=== PATIENT | female | born 1990 | race Hispanic/Latino ===

== ENCOUNTER 2019-03-29 07:08 | Emergency (ER) | payer OTHER, SELFPAY ==
--- OUTSIDE RECORDS SUMMARY | 2019-03-29 07:10 | XMS REPORT | Summary of Care ---
:1990 Author Organization [facility] Address [address] [place] [id number] Care Team Providers Name Role Phone Pcp, Patient Does Not Have A Unavailable Serena Castanon MD Primary Care Provider Reason for Visit Reason Comments New Medication Encounter Details Date Type Department Care Team Description 09/25/2018 Case Management [facility] Women's Danae Freedman, New Medication [facility]- [address], [address] [place] [address] [address] [place] [address] [place] [address] [place] [phone] Allergies No Known Allergiesdocumented as of this encounter (statuses as of 09/25/2018) Medications Medication Sig Dispensed Refills Start Date End Date Status Take by mouth. 0 Active vits62/FA/om3/dha/epa ( GUMMY ORAL) ibuprofen 600 mg Take 1 tablet by 30 tablet 1 08/26/2018 Active tabletIndications: mouth every 6 care and (six) hours as examination immediately needed for after delivery Alternate with [place] for pain scale 4-6. metroNIDAZOLE 500 mg Take 1 tablet by 14 tablet 0 09/25/2018 Active tabletIndications: BV mouth every 12 (bacterial vaginosis), (twelve) hours. Trichomonal vulvovaginitis documented as of this encounter (statuses as of 09/25/2018) Active Problems Patient Care Coordination Note IOL on 02/13/2017 @ 7a.m. Problem Noted Date care and examination immediately after delivery 08/26/2018 PROM (premature rupture of membranes) 08/25/2018 with 38 completed weeks gestation 08/25/2018 Encounter for female sterilization procedure 08/25/2018 Depression during , antepartum 06/13/2018 Excessive weight gain 06/13/2018 Previous section 06/13/2018 Elevated BP without diagnosis of hypertension 06/13/2018 Obesity (BMI 30-39.9) 01/23/2017 Chlamydia 06/29/2016 Depression, unspecified depression type 06/28/2016 documented as of this encounter (statuses as of 09/25/2018) Resolved Problems Problem Noted Date Resolved Date Tubal ligation status 06/13/2018 08/26/2018 care and examination of lactating mother 02/14/2017 08/26/2018 Full-term premature rupture of membranes with onset of labor 01/23/201702/14 within 24 hours of rupture 37 weeks gestation of 01/23/2017 02/14/2017 Liveborn , of [place] , born in hospital by 01/23/201702/14 delivery Labor abnormality, delivered 01/23/2017 02/14/2017 Supervision of high risk , antepartum, third 12/03/2016 02/14/2017 trimester Candidiasis of vulva and vagina 11/16/2016 02/14/2017 Need for Tdap vaccination 11/16/2016 02/14/2017 Supervision of high risk , antepartum, second 11/02/2016 12/03/2016 trimester Nausea & vomiting 08/01/2016 09/07/2016 Abnormal quad screen 07/30/2016 02/14/2017 Supervision of high risk , antepartum, first 06/28/2016 11/02/2016 trimester Missed menses 06/28/2016 02/14/2017 Nausea and vomiting during prior to 22 weeks 06/28/2016 02/14/2017 gestation Obesity in 06/28/2016 02/14/2017 documented as of this encounter (statuses as of 09/25/2018) Immunizations Name Administration Dates Next Due Influenza Virus Vaccine Quad .5 mL IM 6+ MO 06/13/2018 06/14/2019 TDAP (ADACEL) VACCINE 07/14/2018 Tdap 11/16/2016 documented as of this encounter Social History Tobacco Use Types Packs/Day Years Used Date Former Smoker Cigarettes Quit: 05/13/2018 Smokeless Tobacco: Never Used Alcohol Use Drinks/Week oz/Week Comments No Sex Assigned at Date Recorded Not on file Job Start Date Occupation Industry Not on file Not on file Not on file Travel History Travel Start Travel End No recent travel history available. documented as of this encounter Last Filed Vital Signs Not on filedocumented in this encounter Plan of Treatment Date Type Specialty Care Team Description 10/19/2018 Office Visit Obstetrics & Gynecology Serena Castanon MD [address] [place] [address] [address] [place] [address] [phone] 11/20/2019 Office Visit Obstetrics & Gynecology Serena Castanon MD [address] [place] [address] [address] [place] [address] [phone] Health Maintenance Due Date Last Done Comments INFLUENZA VACCINE 10/29/2018 06/13/2018 PAP SMEAR 06/29/2019 06/28/2016 DTaP,Tdap,and Td Vaccines (3 07/14/2028 07/14/2018, - Td) 11/16/2016 PNEUMOCOCCAL 0-64 YEARS Aged Out No longer eligible based COMBINED SERIES on patient's age to complete this topic documented as of this encounter Results Not on filedocumented in this encounter Visit Diagnoses Diagnosis Trichomonal vulvovaginitis - Primary BV (bacterial vaginosis) Vaginitis and vulvovaginitis, unspecified documented in this encounter Insurance Payer Benefit Plan / Subscriber ID Effective Dates Phone Address Type Group [facility] xxxxxxxxx 2018-Present Medicaid COMM PLAN - MANAGED MEDICAID documented as of this encounter
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
--- OUTSIDE RECORDS SUMMARY | 2019-03-29 07:10 | XMS REPORT ---
:1990 [facility] Address [address] [place] [address] [address] [place] [address] Care Team Providers Name Role Phone Unavailable Unavailable Unavailable Problems This patient has no known problems. Allergies, Adverse Reactions, Alerts This patient has no known allergies or adverse reactions. Medications This patient has no known medications.
[2019-03-29] MEDS ORDERED: ONDANSETRON 4 MG/2 ML VIAL ONE (07:24)
[2019-03-29] MEDS ORDERED: LIDOCAINE VISCOUS 2% SOLN 15 ML UDC ONE (07:24)
[2019-03-29] MEDS ORDERED: MEPERIDINE HCL 25 MG/0.5 ML ONE (07:24)
[2019-03-29] MEDS ORDERED: MAGNE/ALUM HYDROXD 30 ML UCUP ONE (07:24)
[2019-03-29 07:26] LABS: Absolute Lymphocytes (CBC) 2.9 K/uL (0.7-4.9); Basophils % 0.8 % (0-1.3); Hematocrit 42.4 % (36.0-45.0); Lymphocytes % 27.9 % (15.3-44.8); MPV 8.9 fL (7.6-11.3); RBC Red Blood Cell Count 4.95 M/uL (3.86-4.86)
[2019-03-29 07:46] LABS: ALT/SGPT 29 U/L (12-78); AST/SGOT 22 U/L (15-37); Albumin 3.7 g/dL (3.4-5.0); Alkaline Phosphatase 95 U/L (45-117); BUN Blood Urea Nitrogen 12 mg/dL (7-18); Bicarbonate 21 mmol/L (21-32); Bilirubin Direct 0.1 mg/dL (0-0.2); Bilirubin Total 0.6 mg/dL (0.2-1.0); Glucose Level 100 mg/dL (74-106); Lipase 63 U/L (73-393); Potassium 4.1 mmol/L (3.5-5.1); Protein, Total 7.5 g/dL (6.4-8.2); Sodium Level 140 mmol/L (136-145)
--- NOTE | 2019-03-29 08:42 | RAD REPORT ---
EXAM DESCRIPTION: CT - Abdomen Pelvis W Contrast - 03/29/2019 8:21 am CLINICAL HISTORY: Abdominal pain/vomiting COMPARISON: none. TECHNIQUE: Computed axial tomography of the abdomen pelvis was obtained. 100 cc Isovue-300 was admin istered intravenously. Oral contrast was not requested which limits evaluation of bowel. All CT scans are performed using dose optimization technique as appropriate and may include automated exposure control or mA/KV adjustment according to patient size. FINDINGS: The liver, spleen, pancreas, adrenal and left kidney appear unremarkable. Tiny right renal cyst. Right renal cortical thinning. There is no evidence of diverticulitis. Normal appendix. No significant free fluid Cholecystectomy. Tiny umbilical hernia IMPRESSION: Mild right renal cortical thinning may be secondary to prior inflammation No acute abnormality is displayed.
--- NOTE | 2019-03-29 09:00 | ER ---
Nurse's Notes [facility] Name: Erika Marr Age: 28 yrs Sex: Female : 1990 Arrival Date: 03/29/2019 Time: 07:09 Bed 20 Private MD: Diagnosis: Gastritis, unspecified Presentation: 03/29 07:09 Presenting complaint: Patient states: Intermittent epigastric pain with nausea/ ss vomiting that began at 0300 this morning. Pt reports she had had this pain before, but not this bad. Transition of care: patient was not received from another setting of care. Onset of symptoms was March 29, 2019. Risk Assessment: Do you want to hurt yourself or someone else? Patient reports no desire to harm self or others. Initial Sepsis Screen: Does the patient meet any 2 criteria? No. Patient's initial sepsis screen is negative. Does the patient have a suspected source of infection? No. Patient's initial sepsis screen is negative. Care prior to arrival: None. 07:09 Method Of Arrival: Ambulatory ss 07:09 Acuity: VANITA 3 ss Historical: - Allergies: 07:12 No Known Allergies; ss - Home Meds: 07:12 None [Active]; ss - PMHx: 07:12 None; ss - PSHx: 07:12 Cholecystectomy; mass removed from back; Tubal ligation; ss - Immunization history:: Adult Immunizations up to date. - Coronavirus screen:: The patient has NOT traveled to [place], [place], or [place] in the past 14 days. Proceed with normal triage process as indicated. - Social history:: Smoking status: Patient denies any tobacco usage or history of. - Family history:: not pertinent. - Ebola Screening: : Patient denies exposure to infectious person Patient denies travel to an Ebola-affected area in the 21 days before illness onset. - Hospitalizations: : No recent hospitalization is reported. Screenin:13 Abuse screen: Denies threats or abuse. Denies injuries from another. Nutritional ss screening: No deficits noted. Tuberculosis screening: Never had TB. Fall Risk None identified. Assessment: 07:13 General: Appears distressed, uncomfortable, Behavior is cooperative, restless, Reports ss feeling ill for 0-12 hours, Denies fever, fatigue, chills. Pain: Complains of pain in epigastric area Pain currently is 8 out of 10 on a pain scale. Quality of pain is described as burning, Pain began 0300 this morning. Pt reports she ate foods that may have been more spicy than she normally eats. Is intermittent. Neuro: Level of Consciousness is awake, alert, obeys commands, Oriented to person, place, time, situation. Cardiovascular: Capillary refill < 3 seconds is brisk in bilateral fingers. Respiratory: Airway is patent Respiratory effort is even, unlabored, Respiratory pattern is regular, symmetrical. GI: Reports epigastric pain, nausea, vomiting, Patient currently denies diarrhea. : No signs and/or symptoms were reported regarding the genitourinary system. EENT: Nares are clear. Derm: Skin is intact, is healthy with good turgor, Skin is pink, warm \T\ dry. normal. Musculoskeletal: Circulation, motion, and sensation intact. Range of motion: intact in all extremities, Swelling absent. 08:24 Reassessment: Patient appears in no apparent distress at this time. Patient and/or ss family updated on plan of care and expected duration. Pain level reassessed. Patient is alert, oriented x 3, equal unlabored respirations, skin warm/dry/pink. pain is now 4/10 Patient states feeling better. Patient states symptoms have improved. 09:10 Reassessment: Patient appears in no apparent distress at this time. No changes from rb1 previously documented assessment. Vital Signs: 07:12 BP 121 / 82; Pulse 70; Resp 19; Temp 97.9(TE); Pulse Ox 100% on R/A; Weight 90.72 kg; Height 5 ft. 2 in. (157.48 cm); Pain 8/10; 08:12 BP 109 / 80; Pulse 62; Resp 17; Pulse Ox 95% on R/A; rb1 08:24 Pain 4/10; ss 09:16 BP 112 / 74; Pulse 70; Resp 16; Pulse Ox 97% on R/A; Pain 4/10; rb1 07:12 Body Mass Index 36.58 (90.72 kg, 157.48 cm) ED Course: 07:09 Patient arrived in ED. ss 07:09 Osorio Nunes MD is Attending Physician. rn 07:11 Triage completed. ss 07:12 Arm band placed on right wrist. ss 07:13 Patient has correct armband on for positive identification. Bed in low position. Call ss light in reach. 07:27 Sandhya Jeronimo, RN is Primary Nurse. 07:28 Initial lab(s) drawn, by me, sent to lab. Inserted saline lock: 20 gauge in right em1 antecubital area, using aseptic technique. Blood collected. 08:21 CT Abd/Pelvis - IV Contrast Only In Process Unspecified. EDMS 09:17 No provider procedures requiring assistance completed. IV discontinued, intact, rb1 bleeding controlled, No redness/swelling at site. Pressure dressing applied. Administered Medications: 07:25 Drug: GI Cocktail without - (Maalox Suspension 30 ml, Lidocaine Liquid 2 % 15 ss ml) Route: PO; 08:00 Follow up: Response: No adverse reaction; Marked relief of symptoms 07:25 Drug: Zofran 4 mg Route: IVP; Site: right antecubital; ss 07:45 Follow up: Response: No adverse reaction; Nausea is decreased ss 07:28 Drug: Demerol 25 mg Route: IVP; Site: right antecubital; ss 08:00 Follow up: Response: No adverse reaction; Pain is decreased Outcome: 09:00 Discharge ordered by . rn 09:17 Discharged to home ambulatory. rb1 09:17 Condition: stable 09:17 Discharge instructions given to patient, Instructed on discharge instructions, follow up and referral plans. medication usage, Demonstrated understanding of instructions, follow-up care, medications, Prescriptions given X 1. 09:19 Patient left the ED. rb1 Signatures: Dispatcher [employer] EDNJ Osorio Nunes MD MD rn Martinez, Anjel em1 Sandhya Jeronimo RN RN Morenita Shirley RN RN rb1
--- NOTE | 2019-03-29 09:00 | EDPHYS ---
Physician Documentation [facility] Name: Erika Marr Age: 28 yrs Sex: Female : 1990 Arrival Date: 03/29/2019 Time: 07:09 Bed 20 Private MD: ED Physician Osorio Nunes HPI: 03/29 07:17 This 28 yrs old Female presents to ER via Ambulatory with complaints of rn Epigastric Pain. 07:17 The patient presents with abdominal pain in the epigastric area. Onset: The rn symptoms/episode began/occurred this morning. The symptoms do not radiate. Associated signs and symptoms: Pertinent positives: nausea and vomiting, Pertinent negatives: blood in stools, chest pain, diarrhea, fever, shortness of breath, vaginal discharge, vomiting blood. The symptoms are described as crampy, sharp. Modifying factors: The symptoms are alleviated by nothing, the symptoms are aggravated by touching the area. Severity of pain: At its worst the pain was moderate in the emergency department the pain is unchanged. The patient has experienced similar episodes in the past. The patient has not recently seen a physician. Reports upper abd pain, began this morning, felt similar episodes in past, has had gallbladder removed, + nausea/vomiting, neg for diarrhea. . Historical: - Allergies: 07:12 No Known Allergies; ss - Home Meds: 07:12 None [Active]; ss - PMHx: 07:12 None; ss - PSHx: 07:12 Cholecystectomy; mass removed from back; Tubal ligation; ss - Immunization history:: Adult Immunizations up to date. - Coronavirus screen:: The patient has NOT traveled to [place], [place], or [place] in the past 14 days. Proceed with normal triage process as indicated. - Social history:: Smoking status: Patient denies any tobacco usage or history of. - Family history:: not pertinent. - Ebola Screening: : Patient denies exposure to infectious person Patient denies travel to an Ebola-affected area in the 21 days before illness onset. - Hospitalizations: : No recent hospitalization is reported. ROS: 07:17 Constitutional: Negative for fever, chills, and weight loss, Eyes: Negative for injury, rn pain, redness, and discharge, Neck: Negative for injury, pain, and swelling, Cardiovascular: Negative for chest pain, palpitations, and edema, Respiratory: Negative for shortness of breath, cough, wheezing, and pleuritic chest pain, Abdomen/GI: + epigastric abd pain, + vomiting MS/Extremity: Negative for injury and deformity, Skin: Negative for injury, rash, and discoloration, Neuro: Negative for headache, weakness, numbness, tingling, and seizure. Exam: 07:17 Constitutional: This is a well developed, well nourished patient who is awake, alert, rn rocking back and forth, holding epigastrium Head/Face: Normocephalic, atraumatic. ENT: MMM Cardiovascular: Regular rate and rhythm. No pulse deficits. Abdomen/GI: soft, mild epigastric tenderness, no rebound Skin: Warm, dry with normal turgor. Normal color with no rashes, no lesions, and no evidence of cellulitis. MS/ Extremity: Pulses equal, no cyanosis. Neurovascular intact. Full, normal range of motion. Equal circumference. Neuro: Awake and alert, GCS 15, oriented to person, place, time, and situation. Cranial nerves II-XII grossly intact. Motor strength 5/5 in all extremities. Sensory grossly intact. Vital Signs: 07:12 BP 121 / 82; Pulse 70; Resp 19; Temp 97.9(TE); Pulse Ox 100% on R/A; Weight 90.72 kg; ss Height 5 ft. 2 in. (157.48 cm); Pain 8/10; 08:12 BP 109 / 80; Pulse 62; Resp 17; Pulse Ox 95% on R/A; rb1 08:24 Pain 4/10; ss 09:16 BP 112 / 74; Pulse 70; Resp 16; Pulse Ox 97% on R/A; Pain 4/10; rb1 07:12 Body Mass Index 36.58 (90.72 kg, 157.48 cm) ss MDM: 07:09 Patient medically screened. rn 08:58 Differential diagnosis: gastritis, gastroesophageal reflux disease, non-specific abd rn pain, pancreatitis, gastritis. Data reviewed: vital signs, nurses notes, lab test result(s), radiologic studies, CT scan, and as a result, I will discharge patient. Counseling: I had a detailed discussion with the patient and/or guardian regarding: the historical points, exam findings, and any diagnostic results supporting the discharge/admit diagnosis, lab results, radiology results, the need for outpatient follow up, to return to the emergency department if symptoms worsen or persist or if there are any questions or concerns that arise at home. Response to treatment: the patient's symptoms have markedly improved after treatment, and as a result, I will discharge patient. Special discussion: Based on the patient's Hx, exam, and Dx evaluation, there is no indication for emergent surgery or inpatient Tx. It is understood by the patient/guardian that if the Sx's persist or worsen they need to return immediately for re-evaluation. I discussed with the patient/guardian in detail that at this point there is no indication for admission to the hospital. It is understood, however, that if the symptoms persist or worsen the patient needs to return immediately for re-evaluation. Based on the history and exam findings, there is no indication for further emergent testing or inpatient evaluation. I discussed with the patient/guardian the need to see the arboriculturist for further evaluation of the symptoms. 03/29 07:14 Order name: Basic Metabolic Panel; Complete Time: 07:50 rn 03/29 07:14 Order name: CBC with Diff; Complete Time: 07:50 rn 03/29 07:14 Order name: Creatinine for Radiology; Complete Time: 07:50 rn 03/29 07:14 Order name: Hepatic Function; Complete Time: 07:50 rn 03/29 07:14 Order name: Lipase; Complete Time: 07:50 rn 03/29 07:14 Order name: CT Abd/Pelvis - IV Contrast Only; Complete Time: 08:46 rn 03/29 07:14 Order name: IV Saline Lock; Complete Time: 07:28 rn 03/29 07:14 Order name: Labs collected and sent; Complete Time: 07:28 rn Administered Medications: 07:25 Drug: GI Cocktail without - (Maalox Suspension 30 ml, Lidocaine Liquid 2 % 15 ss ml) Route: PO; 08:00 Follow up: Response: No adverse reaction; Marked relief of symptoms ss 07:25 Drug: Zofran 4 mg Route: IVP; Site: right antecubital; ss 07:45 Follow up: Response: No adverse reaction; Nausea is decreased ss 07:28 Drug: Demerol 25 mg Route: IVP; Site: right antecubital; ss 08:00 Follow up: Response: No adverse reaction; Pain is decreased ss Disposition: 03/29/19 09:00 Discharged to Home. Impression: Gastritis, unspecified. - Condition is Stable. - Discharge Instructions: Gastritis, Adult. - Prescriptions for Protonix 40 mg Oral Tablet - take 1 tablet by ORAL route once daily; 30 tablet. - Medication Reconciliation Form, Thank You Letter, Antibiotic Education, Prescription Opioid Use, Work release form form. - Follow up: Private Physician; When: As needed; Reason: Recheck today's complaints, Re-evaluation by your physician. - Problem is new. - Symptoms have improved. Signatures: Dispatcher [employer] EDMS Osorio Nunes MD MD rn Sandhya Jeronimo RN RN ss Morenita Shirley RN RN rb1 Corrections: (The following items were deleted from the chart) 09:00 03/29/2019 09:00 Discharged to Home. Impression: Gastritis, unspecified. rb1 Condition is Stable. Forms are Medication Reconciliation Form, Thank You Letter, Antibiotic Education, Prescription Opioid Use. Follow up: Private Physician; When: As needed; Reason: Recheck today's complaints, Re-evaluation by your physician. Problem is new. Symptoms have improved. rn
[2019-03-29 15:22] VITALS: TEMP 97.9
[2019-03-29 15:26] VITALS: BP 112/74; O2SAT 97
== END 2019-03-29 09:19 | disposition home or self-care (01) ==
LOC: ER 07:08
DX: K29.70 Gastritis, unspecified, without bleeding (principal)
CPT/HCPCS: 36415; 74177; 80048; 80076; 83690; 85025; 96374; 96375; 99284; J2175; J2405; Q9967

== ENCOUNTER 2021-05-17 11:39 | Emergency (ER) | payer SELFPAY ==
--- OUTSIDE RECORDS SUMMARY | 2021-05-17 11:42 | XMS REPORT | Continuity of Care Document ---
:1990 Author Organization [facility] t Address [address] [place] [address] Care Team Providers Name Role Phone SAMANTHA CHRISTIANSON Primary Care Physician Unavailable FREDY Attending Clinician Unavailable Fredy KUO Attending Clinician Geovanny BELL Attending Clinician Unavailable SAMANTHA CHRISTIANSON Attending Clinician Unavailable Tano POLANCO Attending Clinician Samantha Christianson MD Attending Clinician FREDY Admitting Clinician Unavailable Payers Payer Name Policy Type Policy Number Effective Date Expiration Date S ource Problems Condition Condition Condition Status Onset Resolution Last Treating Co mments Source Name Details Category Date Date Treatment Clinician Date Disease Active U nivers care and care and 6 [place] exam[place] Medical immediatel immediatel Br anch y after y after delivery delivery PROM PROM Disease Active Univers (premature (premature 6-28 it y of rupture of rupture of [place] membranes) membranes) 00 Wi dical Branch Disease Active Uni vers with 38 with 38 6-28 [place] 00 Medical gestation gestation Bran ch Encounter Encounter Disease Active Uni vers for female for female 6-28 it y of sterilizat sterilizat [place] 00 Medical procedure procedure Bran ch Encounter Encounter Disease Active Uni vers for female for female 6-28 it y of sterilizat sterilizat [place] 00 Medical procedure procedure Bran ch Depression Depression Disease Active U nivers during during 4-16 [place] of , , [place] antepartum antepartum 00 Wi dical Branch Excessive Excessive Disease Active Uni vers weight weight 4-16 ity of gain gain 00:00: [place] [id number] Medical Branch Previous Previous Disease Active Unive rs 4-16 ity of section section 00:00: [address] Elevated Elevated Disease Active Unive rs BP without BP without 4-16 it y of diagnosis diagnosis [place] hypertensi hypertensi Br anch on on Obesity Obesity Disease Active 2016-02 Univers (BMI (BMI 1-26 ity of 30-39.9) 30-39.9) 00:00: [address] Branch Chlamydia Chlamydia Disease Active Uni vers - ity of 00:00: [address] Depression Depression Disease Active U nivers , , 06-28 ity of unspecifie unspecifie [place] d d 00 Medical depression depression Br anch type type Allergies, Adverse Reactions, Alerts Allergy Allergy Status Severity Reaction(s) Onset Inactive Treating Comm ents Source Name Type Date Date Clinician NO KNOWN Drug Active Univers ALLERGIE Class ity of S [facility] Social History Social Habit Start Date Stop Date Quantity Comments Source Exposure to Not sure [facility] SARS-CoV-2 [facility] (event) Branch Alcohol intake 2018-09-21 2018-09-21 Current University of 00:00:00 00:00:00 non-drinker of [facility] alcohol (finding) Branch History of 2018-05-13 Cigarette Smoker Universi ty of tobacco use 00:00:00 [facility] Tobacco use and 2016-06-28 2016-06-28 Never used Universit y of exposure 00:00:00 00:00:00 [facility] Sex Assigned At [birth year] Universit y of 00:00:00 00:00:00 [facility] Smoking Status Start Date Stop Date Source Former smoker 2016-06-28 00:00:00 2016-06-28 00:00:00 Universi ty of [facility] Medications Ordered Filled Start Stop Current Ordering Indication Dosage Frequency Signature Comments Components Source Medication Medication Date Date Medication? Clinician (SIG) Name Name metroNIDAZO Yes [id number] 500mg Take 1 Univers LE 500 mg 7-29 tablet by ity o f tablet 00:00: mouth [place] 00 every 12 Medical (twelve) Branch hours. metroNIDAZO Yes [id number] 500mg Take 1 Univers LE 500 mg 7-29 tablet by ity o f tablet 00:00: mouth [place] 00 every 12 Medical (twelve) Branch hours. Yes Take by Unive rs vits62/FA/o 6-30 mouth. ity of m3/dha/epa 19:09: [place] ( 44 Medical GUMMY ORAL) Branch Yes Take by Unive rs vits62/FA/o 6-30 mouth. ity of m3/dha/epa 19:09: [place] ( 44 Medical GUMMY ORAL) Branch Yes Take by Unive rs vits62/FA/o 6-30 mouth. ity of m3/dha/epa 14:09: [place] ( 44 Medical GUMMY ORAL) Branch ibuprofen Yes [id number] 600mg Take 1 U nivers 600 mg 6-29 tablet by ity of tablet 00:00: mouth [place] 00 every 6 Medical (six) Branch hours as needed for Alternate with [place] for pain scale 4-6. ibuprofen Yes [id number] 600mg Take 1 U nivers 600 mg 6-29 tablet by ity of tablet 00:00: mouth [place] 00 every 6 Medical (six) Branch hours as needed for Alternate with [place] for pain scale 4-6. ibuprofen Yes [id number] 600mg Take 1 U nivers 600 mg 6-29 tablet by ity of tablet 00:00: mouth [place] 00 every 6 Medical (six) Branch hours as needed for Alternate with [place] for pain scale 4-6. simethicone 2019- No [id number] 160mg Take 2 Univers 80 mg 6-29 07-25 tablets by ity of chewable 00:00: 00:00 mouth [place] tablet 00 :00 after Medical meals and Branch at bedtime. HYDROcodone 2019- No [id number] 1{tbl} Take 1 Univers -acetaminop 6-29 07-25 tablet by it y of hen 5-325 00:00: 00:00 mouth [place] mg tablet 00 :00 every 6 Medical (six) Branch hours as needed (pain). Immunizations Ordered Filled Immunization Date Status Comments [facility] e Immunization Name Name SARS-COV-2 COVID-19 2020-05-14 Completed Unive rsity of PFIZER VACCINE 00:00:00 [facility] TDAP (ADACEL) 2018-07-14 Completed University of VACCINE 00:00:00 [facility] TDAP (ADACEL) 2018-07-14 Completed University of VACCINE 00:00:00 [facility] TDAP (ADACEL) 2018-07-14 Completed University of VACCINE 00:00:00 [facility] Influenza Virus 2018-06-13 Completed Universit y of Vaccine Quad .5 mL 00:00:00 [facility] IM 6+ MO Branch Influenza Virus 2018-06-13 Completed Universit y of Vaccine Quad .5 mL 00:00:00 [facility] IM 6+ MO Branch Influenza Virus 2018-06-13 Completed Universit y of Vaccine Quad .5 mL 00:00:00 [facility] 6+ MO Branch Tdap 2016-11-16 Completed University of 00:00:00 [facility] Tdap 2016-11-16 Completed University of 00:00:00 [facility] TDAP 2016-11-16 Completed University of 00:00:00 [facility] Vital Signs Vital Name Observation Time Observation Value Comments Source Systolic blood 2021-04-15 09:00:00 119 mm[Hg] Univer sity of pressure [facility] Diastolic blood 2021-04-15 09:00:00 92 mm[Hg] Unive rsity of pressure [facility] Heart rate 2021-04-15 09:00:00 87 /min [facility] Respiratory rate 2021-04-15 09:00:00 24 /min [facility] Oxygen saturation in 2021-04-15 09:00:00 95 /min [facility] Arterial blood by [facility] Pulse oximetry Branch Body temperature 2021-04-15 06:08:00 37.83 [facility] Body weight 2021-04-15 06:08:00 83.915 kg [facility] BMI 2021-04-15 06:08:00 33.84 kg/m2 [facility] Systolic blood 2018-09-21 21:29:00 116 mm[Hg] Univer sity of pressure [facility] Diastolic blood 2018-09-21 21:29:00 78 mm[Hg] [facility] Heart rate 2018-09-21 21:29:00 72 /min [facility] Body temperature 2018-09-21 21:29:00 36.72 [facility] Respiratory rate 2018-09-21 21:29:00 18 /min [facility] Body height 2018-09-21 21:29:00 157.5 cm [facility] Body weight 2018-09-21 21:29:00 85.276 kg [facility] BMI 2018-09-21 21:29:00 34.39 kg/m2 [facility] Procedures Procedure Date / Time Performing Clinician Source Performed POCT TEST 2021-04-15 07:04:00 José Manuel Daniel [facility] COVID-19 (ID NOW RAPID 2021-04-15 07:02:[address] [facility] TESTING) [facility] URINE DRUG (IMMUNOASSAY) 2021-04-15 07:01:00 José Manuel Daniel [facility] DRUG [facility] nch SCREEN W/O REFLEX URINALYSIS 2021-04-15 07:01:00 José Manuel Daniel [facility] XR CHEST 1 VW 2021-04-15 06:40:00 José Manuel Daniel [facility] N-TERMINAL PRO-BNP 2021-04-15 06:32:00 José Manuel Daniel [facility] TROPONIN I 2021-04-15 06:32:00 José Manuel Daniel [facility] COMP. METABOLIC PANEL 2021-04-15 06:32:00 José Manuel Daniel [facility] ([id number]) [facility] ETHANOL 2021-04-15 06:32:00 José Manuel Daniel [facility] CBC WITH DIFF 2021-04-15 06:32:00 José Manuel Daniel [facility] NOTICE OF PRIVACY 2021-04-15 06:03:45 Doctor Unassigned, No Univ [facility] PRACTICES Name Medical Branch CONSENT/REFUSAL FOR 2021-04-15 06:01:26 Doctor Unassigned, No Un [facility] DIAGNOSIS AND TREATMENT Name Medical Branch Encounters Start End Encounter Admission Attending Care Care Encounter Source Date/Time Date/Time Type Type Clinicians Facility Department ID 2021-04-15 2021-04-15 Emergency X FREDY [facility] ERT [id number] Univers 00:02:00 03:32:00 JOSÉ MANUEL [facility] 2021-04-15 2021-04-15 [id number] Univers 00:02:00 03:32:00 José Manuel JUAN JOSÉ [id number] i ty of [id number] [id number] [address] 2020-06-06 2020-06-06 Outpatient Naeem [facility] [id number] Univers 16:20:00 16:20:00 TESFAYE [facility] 2020-05-14 2020-05-14 Outpatient Naeem [facility] [id number] Univers 16:20:00 17:07:43 TESFAYE [facility] 2019-11-20 2019-11-20 Outpatient R DANELLE CHRISTIANSON [facility] [id number] Univers [facility]:00[facility]00 [facility] 2018-09-25 [facility] [id number] Univers 00:00:00 00:00:00 Management Danae Velasquez [id number] [id number] [phone] Wi [address] 2018-09-21 2018-09-21 Routine Danelle Christianson [facility] [id number] Univers 16:18:25 16:44:59 Samantha Velasquez [id number] ity of [id number] [phone] Wi dictn nal [address] [facility] Results Test Description Test Time Test Comments Results Result Comments Source TROPONIN I 2021-04-15 07:09:33 Test Item Value Reference Range Interpretation Comme nts TROPONIN I (test code = 0.007 ng/mL See_Comment [Au tomated message] The [id number]) system which ge nerated this result tra nsmitted reference range : <=0.034. The reference r simone was not used to int erpret this result as normal/abnormal . LESA (test code = LESA) Reference (Normal) Range (defined by the 99th percentile reference limit): <= 0.034 ng/mL Note: Cardiac troponin begins to rise 3-4 hours after the onset of ischemia. Repeat in 4-6 hours if the sample was drawn within 3-4 hours of the onset of the symptom and found normal. Diagnosis of myocardial injury is made with acute changes in cTn concentrations with at least one serial sample above the 99th percentile upper reference limit (URL), taken together with the patient's clinical presentation. Biotin has been reported to cause a negative bias, interpret results relative to patient's use of biotin. Lab Interpretation Normal (test code = 13582-4) [id number] 07:05:51 Test Item Value Reference Range Interpretation Comments NT-proBNP (test code 42 pg/mL See_Comment [Autom ated = 1445201944) message] The system which generated this result transmitted reference range : <=125. The reference range was not used to interpret this result as normal/abnormal . LESA (test code = LESA) Biotin has been reported to cause a negative bias, interpret results relative to patient's use of biotin. Lab Interpretation Normal (test code = 78359-7) [facility] [id number] 07:04:00 Test Item Value Reference Range Interpretation Comments POCT PREG (test code = 1605) negative On board controls acceptable with present C Line (test code = 3574) POCT PREG LOT # (test code = 3575) [id number] POCT PREG TEST DATE (test code = 3576) Lab Interpretation (test code = Normal 62055-3) [facility] 06:59:03 Test Item Value Reference Range Interpretation Comments ALCOHOL (test code = <10 mg/dL 2108801039) ELSA (test code = LESA) <10 [id number] Toxic>100 Depression of 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. METABOLIC PANEL (25086)2021-04-15 06:52:09 Test Item Value Reference Range Interpretation Comments NA (test code = 134 mmol/L 135-145 L [id number]) K (test code = 4.5 mmol/L 3.5-5.0 1459240665) CL (test code = 108 mmol/L 98-108 7981188086) CO2 TOTAL (test code = 18 mmol/L 23-31 L 9950078123) AGAP (test code = 2-16 6434938813) BUN (test code = 8 mg/dL 7-23 8648895960) GLUCOSE (test code = 91 mg/dL 70-110 6893624233) CREATININE (test code = 0.62 mg/dL 0.50-1.04 5064056777) TOTAL BILI (test code = 1.1 mg/dL 0.1-1.1 1550099832) CALCIUM (test code = 9.1 mg/dL 8.6-10.6 7460854905) T PROTEIN (test code = 7.8 g/dL 6.3-8.2 7758814381) ALBUMIN (test code = 4.6 g/dL 3.5-5.0 7684489773) ALK PHOS (test code = 63 U/L 34-122 1482880896) ALTv (test code = 18 U/L 5-35 1742-6) AST(SGOT) (test code = 35 U/L 13-40 3606428601) eGFR (test code = mL/min/1.73m2 3925203092) LESA (test code = LESA) Association of Glomerular Filtration Rate (GFR) and Staging of Kidney Disease* + --+ --+ ------+| GFR (mL/min/1.73 m2) ?| With Kidney Damage ?| ?Without Kidney Damage+ --------+ --------+ +| ?>90 ?| ?Stage one ?| ? Normal ?+ ---+ ---+ -------+| ?60-89 ?| ?Stage two ?| ? Decreased GFR ? + --+ --+ ------+| ?30-59 ?| ?Stage three ?| ? Stage three ? + --+ --+ ------+| ?15-29 ?| ?Stage four ? | ? Stage four ?+ ---+ ---+ -------+| ?<15 (or dialysis) ? ?| ?Stage five ? | ? Stage five ?+ ---+ ---+ -------+ *Each stage assumes the associated GFR level has been in effect for at least three months. ?Stages 1 to 5, with or without kidney disease, indicate chronic kidney disease. Notes: Determination of stages one and two (with eGFR >59mL/min/1.73 m2) requires estimation of kidney damage for at least three months as defined by structural or functional abnormalities of the kidney, manifested by either:Pathological abnormalities or Markers of kidney damage (including abnormalities in the composition of the blood or urine or abnormalities in imaging tests). Lab Interpretation Abnormal (test code = 75352-6) [facility] WITH [id number] 06:39:26 Test Item Value Reference Range Interpretation Comments WBC (test code = See_Comment H [Automated 5677-2) message] The system which generated this result transmit nadiya reference range : 4.30 - 11.10 10*3/?L. The reference range was not used to interpret this result as normal/abnormal . RBC (test code = See_Comment [Automated 609-8) message] The system which generated this result transmit nadiya reference range : 3.93 - 5.25 10*6/?L. The reference range was not used to interpret this result as normal/abnormal . HGB (test code = 13.9 g/dL 11.6-15.0 718-7) HCT (test code = 41.7 % 35.7-45.2 4544-3) MCV (test code = 89.3 fL 80.6-95.5 787-2) MCH (test code = 29.8 pg 25.9-32.8 785-6) MCHC (test code = 33.3 g/dL 31.6-35.1 786-4) RDW-SD (test code = 39.3 fL 39.0-49.9 94633-0) RDW-CV (test code = 12.1 % 12.0-15.5 788-0) PLT (test code = See_Comment [Automated 777-3) message] The system which generated this result transmit nadiya reference range : 166 - 358 10*3/ ?L. The reference range was not u sed to interpret th is result as normal/abnormal . MPV (test code = 11.4 fL 9.5-12.9 63367-5) NRBC/100 WBC (test See_Comment [Automat ed code = 2022234598) message] The system which generated this result transmit nadiya reference range : 0.0 - 10.0 /100 WBCs. The reference range was not used to interpret this result as normal/abnormal . NRBC x10^3 (test code <0.01 See_Comment [Auto mated = [id number]) message] The system which generated this result transmit nadiya reference range : 10*3/?L. The reference range was not used to interpret this result as normal/abnormal . GRAN MAT (NEUT) % 79.5 % (test code = 770-8) IMM GRAN % (test code 0.50 % = 8243885045) LYMPH % (test code = 10.9 % 736-9) MONO % (test code = 7.8 % 5905-5) EOS % (test code = 0.9 % 713-8) BASO % (test code = 0.4 % 706-2) GRAN MAT x10^3(ANC) 13.06 10*3/uL 1.88-7.09 H (test code = 1309769137) IMM GRAN x10^3 (test 0.08 10*3/uL 0.00-0.06 H code = 4425450606) LYMPH x10^3 (test code 1.80 10*3/uL 1.32-3.29 = 731-0) MONO x10^3 (test code 1.29 10*3/uL 0.33-0.92 H = 742-7) EOS x10^3 (test code = 0.15 10*3/uL 0.03-0.39 711-2) BASO x10^3 (test code 0.07 10*3/uL 0.01-0.07 = 704-7) Lab Interpretation Abnormal (test code = 65571-4) [facility]"
[2021-05-17] MEDS ORDERED: NA CHLORIDE 0.9% 1,000 ML ONE (12:09)
[2021-05-17] MEDS ORDERED: MORPHINE 4 MG/ML SYR ONE ×2 (12:09→13:27)
[2021-05-17] MEDS ORDERED: ONDANSETRON 4 MG/2 ML VIAL ONE (12:09)
[2021-05-17 12:11] LABS: Absolute Lymphocytes (CBC) 2.4 K/uL (0.7-4.9); Hematocrit 41.4 % (36.0-45.0); MPV 9.4 fL (7.6-11.3); RBC Red Blood Cell Count 4.64 M/uL (3.86-4.86)
[2021-05-17 12:29] LABS: ALT/SGPT 33 U/L (12-78); AST/SGOT 24 U/L (15-37); Albumin 3.7 g/dL (3.4-5.0); Alkaline Phosphatase 85 U/L (45-117); BUN Blood Urea Nitrogen 15 mg/dL (7-18); Bicarbonate 25 mmol/L (21-32); Bilirubin Total 0.4 mg/dL (0.2-1.0); Glucose Level 95 mg/dL (74-106); Lipase 79 U/L (73-393); Potassium 4.4 mmol/L (3.5-5.1); Protein, Total 7.7 g/dL (6.4-8.2); Sodium Level 140 mmol/L (136-145)
--- NOTE | 2021-05-17 13:40 | RAD REPORT ---
EXAM DESCRIPTION: CT - Abdomen Pelvis W Contrast - 05/17/2021 1:11 pm CLINICAL HISTORY: ABD PAIN COMPARISON: No comparisonsAbdomen Pelvis W Contrast dated 03/29/2019 TECHNIQUE: Biphasic, helical CT imaging of the abdomen and pelvis was performed following 100 ml non -ionic IV contrast. No oral contrast administered. All CT scans are performed using dose optimization technique as appropriate and may include automated exposure control or mA/KV adjustment according to patient size. FINDINGS: No suspicious findings in the lung bases. The liver, spleen, and pancreas show no suspicious findings. Gallbladder is absent. Biliary tree with in normal limits. Symmetric renal function is seen with no hydronephrosis or suspicious renal mass. Areas of cortical t hinning match prior study. No pyelonephritis or acute parenchymal process. No bladder abnormalities. No adrenal abnormalities. No acute uterine finding seen. There is a large nabothian cyst on the left side. No suspicious ovarian finding. No fallopian tube dilatation. No dilated bowel loops or bowel wall thickening. Appendix is normal. No free air, free fluid or infla mmatory stranding. No hernia, mass or bulky lymphadenopathy. No suspicious bony findings. IMPRESSION: Contrast enhanced CT abdomen and pelvis showing no acute or emergent finding. No significant change from the 2019 examination.
[2021-05-17] MEDS ORDERED: MAGNES/ALUMIN/SIMET 30ML UCUP ONE (15:34)
[2021-05-17] MEDS ORDERED: LIDOCAINE VISCOUS 2% SOLN 15 ML UDC ONE (15:34)
--- NOTE | 2021-05-17 16:20 | ER ---
Nurse's Notes [facility] Name: Erika Marr Age: 30 yrs Sex: Female : 1990 Arrival Date: 05/17/2021 Time: 11:45 Bed 8 Private MD: Diagnosis: Epigastric pain;Acute gastritis Presentation: 05/17 11:46 Chief complaint: Patient states: Upper abdominal pain that started this morning. Admits ww to vomiting this AM. Coronavirus screen: Vaccine status: Patient reports being unvaccinated. Client denies travel out of the [place] in the last 14 days. Ebola Screen: Patient denies travel to an Ebola-affected area in the 21 days before illness onset. Initial Sepsis Screen: Does the patient meet any 2 criteria? No. Patient's initial sepsis screen is negative. Does the patient have a suspected source of infection? No. Patient's initial sepsis screen is negative. Risk Assessment: Do you want to hurt yourself or someone else? Patient reports no desire to harm self or others. Onset of symptoms was May 17, 2021. 11:46 Method Of Arrival: Wheelchair 11:46 Acuity: VANITA 3 ww Triage Assessment: 11:47 General: Appears uncomfortable, Behavior is anxious, crying. Pain: Complains of pain in ww epigastric area, right upper quadrant and left upper quadrant. Neuro: Level of Consciousness is awake, alert, obeys commands, Oriented to person, place, time, situation, Speech is normal. Cardiovascular: Capillary refill < 3 seconds Patient's skin is warm and dry. Respiratory: Airway is patent Respiratory effort is even, unlabored, Respiratory pattern is regular, symmetrical. GI: Reports upper abdominal pain, nausea, vomiting. Derm: LINE MAINTENANCE: 11:47 LMP 03/2021 ww Historical: - Allergies: 11:47 No Known Allergies; ww - PMHx: 11:47 None; ww - PSHx: 11:47 section; Cholecystectomy; ww - Immunization history:: Adult Immunizations not immunized. - Social history:: Smoking status: Reported history of juuling and/or vaping. Screenin:12 Abuse screen: Denies threats or abuse. Denies injuries from another. Nutritional ic1 screening: No deficits noted. Tuberculosis screening: No symptoms or risk factors identified. Fall Risk None identified. Assessment: 12:12 General: Appears uncomfortable, Behavior is cooperative, anxious. Pain: Complains of ic1 pain in abdomen Pain began suddenly, 3 hours ago. Neuro: Level of Consciousness is awake, alert, obeys commands, Oriented to person, place, time, situation. Cardiovascular: Denies chest pain. Respiratory: Denies cough, shortness of breath. GI: Abdomen is tender to palpation. GI: Reports diarrhea, nausea, vomiting, Patient currently denies constipation. : No deficits noted. EENT: No deficits noted. Derm: No deficits noted. Musculoskeletal: No deficits noted. 13:45 Reassessment: Patient appears in no apparent distress at this time. Patient and/or ic1 family updated on plan of care and expected duration. Pain level reassessed. Patient is alert, oriented x 3, equal unlabored respirations, skin warm/dry/pink. Patient states feeling better. Vital Signs: 11:46 BP 149 / 129; Pulse 86; Resp 26; Temp 99.0; Pulse Ox 100% ; Weight 77.11 kg; Height 5 ww ft. 2 in. (157.48 cm); Pain 10/10; 12:12 BP 141 / 96; Pulse 57; Resp 20; Pulse Ox 99% on R/A; ic1 13:44 BP 111 / 72; Pulse 59; Resp 16; Pulse Ox 97% on R/A; ic1 14:51 BP 116 / 88; Pulse 50; Resp 16; Pulse Ox 96% on R/A; ic1 16:21 Pulse 52; Resp 18; Pulse Ox 97% on R/A; ic1 11:46 Body Mass Index 31.09 (77.11 kg, 157.48 cm) ED Course: 11:45 Patient arrived in ED. ja2 11:46 Jose Moser MD is Attending Physician. kdr 11:47 Triage completed. ww 11:47 Arm band placed on left wrist. ww 12:02 Lyly Echeverria, CURT is Primary Nurse. ic1 12:02 CBC with Diff Sent. ic1 12:02 CMP Sent. ic1 12:02 Lipase Sent. ic1 12:12 Patient has correct armband on for positive identification. Placed in gown. Bed in low ic1 position. Call light in reach. Adult w/ patient. Pulse ox on. NIBP on. Warm blanket given. 12:12 No provider procedures requiring assistance completed. Inserted saline lock: 20 gauge ic1 in right antecubital area, using aseptic technique. Blood collected. 13:10 CT Abd/Pelvis - IV Contrast Only In Process Unspecified. EDMS 16:22 IV discontinued, intact, bleeding controlled, No redness/swelling at site. Pressure ic1 dressing applied. Administered Medications: 12:11 Drug: Zofran (Ondansetron) 4 mg Route: IVP; Site: right antecubital; ic1 12:11 Drug: morphine 4 mg Route: IVP; Site: right antecubital; ic1 12:12 Drug: NS 0.9% 1000 ml Route: IV; Rate: 1 bolus; Site: right antecubital; ic1 16:23 Follow up: IV Status: Completed infusion; IV Intake: 1000ml ic1 13:27 Drug: morphine 4 mg Route: IVP; Site: right antecubital; ic1 16:23 Follow up: Response: Pain is decreased ic1 15:39 Drug: GI Cocktail without - (Maalox Suspension 30 ml, Lidocaine Liquid 2 % 15 ic1 ml) Route: PO; 16:23 Follow up: Response: Pain is decreased ic1 Intake: 16:23 IV: 1000ml; Total: 1000ml. ic1 Outcome: 16:19 Discharge ordered by . kdr 16:22 Discharged to home ambulatory. ic1 16:22 Discharged to 16:22 Condition: stable 16:22 Discharge instructions given to patient, Instructed on discharge instructions, follow up and referral plans. Demonstrated understanding of instructions, follow-up care. 16:35 Instructed on Demonstrated understanding of medications, Prescriptions given X 2. ic1 16:41 Patient left the ED. [email or web address] Signatures: Dispatcher [employer] [facility] Jose Moser MD MD kdr Alexander, Jessica ja2 Wood, Whitney RN RN Kinsey Liao RN RN ha Creggett, Iesha, RN RN ic1
--- NOTE | 2021-05-17 16:20 | EDPHYS ---
Physician Documentation [facility] Name: Erika Marr Age: 30 yrs Sex: Female : 1990 Arrival Date: 05/17/2021 Time: 11:45 Bed 8 Private MD: ED Physician Jose Moser HPI: 05/17 12:48 This 30 yrs old Female presents to ER via Wheelchair with complaints of kdr Abdominal Pain. 12:48 The patient presents with abdominal pain in the epigastric area, in the upper abdomen. kdr Onset: The symptoms/episode began/occurred suddenly, at 07:30. The symptoms do not radiate. Associated signs and symptoms: Pertinent positives: nausea and vomiting, Pertinent negatives: constipation, diarrhea, dysuria, fever, headache. The symptoms are described as achy, crampy, dull, intermittent, steady, waxing/waning. Modifying factors: The symptoms are alleviated by nothing, the symptoms are aggravated by movement. Severity of pain: At its worst the pain was moderate severe incapacitating in the emergency department the pain is unchanged. The patient has experienced similar episodes in the past, a few times, Nothing recently. The patient has not recently seen a physician. 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 - Social history:: Smoking status: Reported history of juuling and/or vaping. ROS: 12:48 Constitutional: Negative for fever, chills, and weight loss, Eyes: Negative for injury, kdr pain, redness, and discharge, ENT: Negative for injury, pain, and discharge, Neck: Negative for injury, pain, and swelling, Cardiovascular: Negative for chest pain, palpitations, and edema, Respiratory: Negative for shortness of breath, cough, wheezing, and pleuritic chest pain, Back: Negative for injury and pain, : Negative for injury, bleeding, discharge, and swelling, MS/Extremity: Negative for injury and deformity, Skin: Negative for injury, rash, and discoloration, Neuro: Negative for headache, weakness, numbness, tingling, and seizure activity. Psych: Negative for depression, anxiety, suicide ideation, homicidal ideation, and hallucinations, Allergy/Immunology: Negative for hives, rash, and allergies, Endocrine: Negative for neck swelling, polydipsia, polyuria, polyphagia, and marked weight changes, Hematologic/Lymphatic: Negative for swollen nodes, abnormal bleeding, and unusual bruising. 12:48 Abdomen/GI: Positive for abdominal pain, nausea and vomiting, constipation, Negative for diarrhea, abdominal cramps, black/tarry stool, rectal pain, rectal bleeding, bowel incontinence. Exam: 12:48 Constitutional: This is a well developed, well nourished patient who is awake, alert, kdr and in no acute distress. Head/Face: Normocephalic, atraumatic. Eyes: Pupils equal round and reactive to light, extra-ocular motions intact. Lids and lashes normal. Conjunctiva and sclera are non-icteric and not injected. Cornea within normal limits. Periorbital areas with no swelling, redness, or edema. Neck: Trachea midline, no thyromegaly or masses palpated, and no cervical lymphadenopathy. Supple, full range of motion without nuchal rigidity, or vertebral point tenderness. No Meningismus. Chest/axilla: Normal chest wall appearance and motion. Nontender with no deformity. No lesions are appreciated. Cardiovascular: Regular rate and rhythm with a normal S1 and S2. No gallops, murmurs, or rubs. Normal PMI, no JVD. No pulse deficits. Respiratory: Lungs have equal breath sounds bilaterally, clear to auscultation and percussion. No rales, rhonchi or wheezes noted. No increased work of breathing, no retractions or nasal flaring. Back: No spinal tenderness. No costovertebral tenderness. Full range of motion. Skin: Warm, dry with normal turgor. Normal color with no rashes, no lesions, and no evidence of cellulitis. MS/ Extremity: Pulses equal, no cyanosis. Neurovascular intact. Full, normal range of motion. Neuro: Awake and alert, GCS 15, oriented to person, place, time, and situation. Cranial nerves II-XII grossly intact. Motor strength 5/5 in all extremities. Sensory grossly intact. Cerebellar exam normal. Normal gait. Psych: Awake, alert, with orientation to person, place and time. Behavior, mood, and affect are within normal limits. Vital Signs: 11:46 BP 149 / 129; Pulse 86; Resp 26; Temp 99.0; Pulse Ox 100% ; Weight 77.11 kg; Height 5 ww ft. 2 in. (157.48 cm); Pain 10/10; 12:12 BP 141 / 96; Pulse 57; Resp 20; Pulse Ox 99% on R/A; ic1 13:44 BP 111 / 72; Pulse 59; Resp 16; Pulse Ox 97% on R/A; ic1 14:51 BP 116 / 88; Pulse 50; Resp 16; Pulse Ox 96% on R/A; ic1 16:21 Pulse 52; Resp 18; Pulse Ox 97% on R/A; ic1 11:46 Body Mass Index 31.09 (77.11 kg, 157.48 cm) ww MDM: 12:48 Data reviewed: vital signs, nurses notes, lab test result(s), EKG, radiologic studies. kdr 16:19 Patient medically screened. kdr 05/17 11:58 Order name: CBC with Diff; Complete Time: 12:48 kdr 05/17 11:58 Order name: CMP; Complete Time: 12:48 kdr 05/17 11:58 Order name: Lipase; Complete Time: 12:48 kdr 05/17 11:58 Order name: CT Abd/Pelvis - IV Contrast Only; Complete Time: 13:55 kdr 05/17 11:58 Order name: IV Saline Lock; Complete Time: 12:02 kdr 05/17 11:58 Order name: Labs collected and sent; Complete Time: 12:02 kdr Administered Medications: 12:11 Drug: Zofran (Ondansetron) 4 mg Route: IVP; Site: right antecubital; ic1 12:11 Drug: morphine 4 mg Route: IVP; Site: right antecubital; ic1 12:12 Drug: NS 0.9% 1000 ml Route: IV; Rate: 1 bolus; Site: right antecubital; ic1 16:23 Follow up: IV Status: Completed infusion; IV Intake: 1000ml ic1 13:27 Drug: morphine 4 mg Route: IVP; Site: right antecubital; ic1 16:23 Follow up: Response: Pain is decreased ic1 15:39 Drug: GI Cocktail without - (Maalox Suspension 30 ml, Lidocaine Liquid 2 % 15 ic1 ml) Route: PO; 16:23 Follow up: Response: Pain is decreased ic1 Disposition Summary: 05/17/21 16:19 Discharge Ordered Location: Home kdr Problem: new kdr Symptoms: are resolved kdr Condition: Stable kdr Diagnosis - Epigastric pain kdr - Acute gastritis kdr Followup: kdr - With: Private Physician - When: 2 - 3 days - Reason: If symptoms return, Further diagnostic work-up, Recheck today's complaints, Continuance of care, Re-evaluation by your physician Discharge Instructions: - Discharge Summary Sheet kdr - Gastritis, Adult, [id number] kdr - Abdominal Pain, Adult, [id number] kdr Forms: - Medication Reconciliation Form kdr - Thank You Letter kdr - Antibiotic Education kdr - Prescription Opioid Use kdr Prescriptions: - Pepcid 20 mg Oral Tablet - take 1 tablet by ORAL route once daily; 20 tablet; Refills: 0, Product kdr Selection Permitted - omeprazole 40 mg Oral capsule,delayed release(DR/EC) - take 2 capsule by ORAL route once daily before a meal; 20 capsule; Refills: 0, kdr Product Selection Permitted Signatures: Dispatcher [employer] Jose Millan MD MD kdr Jessica Sevilla RN RN ww Lyly Echeverria RN RN ic1
[2021-05-17 19:20] VITALS: TEMP 99
[2021-05-17 19:23] VITALS: BP 116/88
[2021-05-17 19:25] VITALS: O2SAT 97
== END 2021-05-17 16:41 | disposition home or self-care (01) ==
LOC: ER 11:39
DX: K29.00 Acute gastritis without bleeding (principal)
CPT/HCPCS: 36415; 74177; 80053; 83690; 85025; 96361; 96374; 96375; 99284; J2405; J7030; Q9967

== ENCOUNTER → 2023-05-16 | Emergency (ER) | payer SELFPAY ==
[~2023-05-16] MED LIST: FAMOTIDINE 20 MG/2 ML VIAL IV ONE; LORazepam 2 MG/ML VIAL ONE; MORPHINE 4 MG/ML SYR ONE; NA CHLORIDE 0.9% 1,000 ML ONE; ONDANSETRON 4 MG/2 ML VIAL ONE; PANTOPRAZOLE 40 MG INJ ONE
--- OUTSIDE RECORDS SUMMARY | 2023-05-16 11:48 | XMS REPORT | Continuity of Care Document ---
Author Name Unknown Address [address] [facility] [address] [place] [address] [facility] Address [address] 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 Role Phone DANELLE CHRISTIANSON Primary Care Physician Unavailab SEA Reese Attending Clinician Unavailable Sea Olea MD Attending Clinician [phone] TESFAYE BELL Attending Clinician Unavailable DANELLE CHRISTIANSON Attending Clinician Unavailable Danae Freedman PA-C Attending Clinician [phone] Danelle Christianson MD Attending Clinician [phone] SEA OLEA Admitting Clinician Unavailable Payers Payer Name Policy Type Policy Number Effective Date Expirati on Date Source Problems Condition Name Condition Details Condition Category Status Onset Date Resolution Date Last Treatment Date Treating Clinician Comments Source care and examinatio n immediatel y after delivery care and examinatio n immediatel y after delivery Disease Active 08-26 00:00: 00 [facility] PROM (premature rupture of membranes) PROM (premature rupture of membranes) Disease Active 08-25 00:00: 00 [facility] with 38 completed weeks gestation with 38 completed weeks gestation Disease Active 08-25 00:00: 00 [facility] Encounter for female sterilizat ion procedure Encounter for female sterilizat ion procedure Disease Active 08-25 00:00: 00 [facility] Encounter for female sterilizat ion procedure Encounter for female sterilizat ion procedure Disease Active 08-25 00:00: 00 [facility] Depression during , antepartum Depression during , antepartum Disease Active 06-13 00:00: 00 [facility] Excessive weight gain Excessive weight gain Disease Active 06-13 00:00: 00 [facility] Previous section Previous section Disease Active 06-13 00:00: 00 [facility] Elevated BP without diagnosis of hypertensi on Elevated BP without diagnosis of hypertensi on Disease Active 06-13 00:00: 00 [facility] Obesity (BMI 30-39.9) Obesity (BMI 30-39.9) Disease Active 2016-02 00:00: 00 [facility] Chlamydia Chlamydia Disease Active 06-29 00:00: 00 [facility] Depression , unspecifie d depression type Depression , unspecifie d depression type Disease Active 06-28 00:00: 00 [facility] Allergies, Adverse Reactions, Alerts Allergy Name Allergy Type Status Severity Reaction(s) Onset Date Inactive Date Treating Clinician Comments Source NO KNOWN ALLERGIE S Drug Class Active [facility] Social History Social Habit Start Date Stop Date Quantity Comments Source Exposure to SARS-CoV-2 (event) Not sure [facility] Alcohol intake 2018-09-21 00:00:00 2018-09-21 00:00:00 Current non-drinker of alcohol (finding) [facility] History of tobacco use 2018-05-13 00:00:00 Cigarette Smoker [facility] Tobacco use and exposure 2016-06-28 00:00:00 2016-06-28 00:00:00 Never used [facility] Sex Assigned At 1990 00:00:00 1990 00:00:00 [facility] Smoking Status Start Date Stop Date Source Former smoker 2016-06-28 00:00:00 2016-06-28 00:00:00 [facility] Medications Ordered Medication Name Filled Medication Name Start Date Stop Date Current Medication? Ordering Clinician Indication Dosage Frequency Signature (SIG) Comments Components Source metroNIDAZO LE 500 mg tablet 09-25 00:00: 00 Yes [id number] 500mg Take 1 tablet by mouth every 12 (twelve) hours. [facility] metroNIDAZO LE 500 mg tablet 09-25 00:00: 00 Yes [id number] 500mg Take 1 tablet by mouth every 12 (twelve) hours. [facility] vits62/FA/o m3/dha/epa ( GUMMY ORAL) 08-27 19:09: 44 Yes Take by mouth. [facility] vits62/FA/o m3/dha/epa ( GUMMY ORAL) 08-27 19:09: 44 Yes Take by mouth. [facility] vits62/FA/o m3/dha/epa ( GUMMY ORAL) 08-27 14:09: 44 Yes Take by mouth. [facility] ibuprofen 600 mg tablet 08-26 00:00: 00 Yes [id number] 600mg Take 1 tablet by mouth every 6 (six) hours as needed for Alternate with [place] for pain scale 4-6. [facility] ibuprofen 600 mg tablet 08-26 00:00: 00 Yes [id number] 600mg Take 1 tablet by mouth every 6 (six) hours as needed for Alternate with [place] for pain scale 4-6. [facility] ibuprofen 600 mg tablet 08-26 00:00: 00 Yes [id number] 600mg Take 1 tablet by mouth every 6 (six) hours as needed for Alternate with [place] for pain scale 4-6. [facility] simethicone 80 mg chewable tablet 08-26 00:00: 00 09-21 00:00 :00 No [id number] 160mg Take 2 tablets by mouth after meals and at bedtime. [facility] HYDROcodone -acetaminop hen 5-325 mg tablet 08-26 00:00: 00 09-21 00:00 :00 No [id number] 1{tbl} Take 1 tablet by mouth every 6 (six) hours as needed (pain). [facility] Vital Signs Vital Name Observation Time Observation Value Comments S ource Systolic blood pressure 2021-04-15 09:00:00 119 mm[Hg] [facility] Diastolic blood pressure 2021-04-15 09:00:00 92 mm[Hg] [facility] Heart rate 2021-04-15 09:00:00 87 /min [facility] Respiratory rate 2021-04-15 09:00:00 24 /min [facility] Oxygen saturation in Arterial blood by Pulse oximetry 2021-04-15 09:00:00 95 /min [facility] Body temperature 2021-04-15 06:08:00 37.83 [place] [facility] Body weight 2021-04-15 06:08:00 83.915 kg [facility] BMI 2021-04-15 06:08:00 33.84 kg/m2 [facility] Systolic blood pressure 2018-09-21 21:29:00 116 mm[Hg] [facility] Diastolic blood pressure 2018-09-21 21:29:00 78 mm[Hg] [facility] Heart rate 2018-09-21 21:29:00 72 /min [facility] Body temperature 2018-09-21 21:29:00 36.72 [place] [facility] Respiratory rate 2018-09-21 21:29:00 18 /min [facility] Body height 2018-09-21 21:29:00 157.5 cm [facility] Body weight 2018-09-21 21:29:00 85.276 kg [facility] BMI 2018-09-21 21:29:00 34.39 kg/m2 [facility] Procedures Procedure Date / Time Performed Performing Clinician Source POCT TEST 2021-04-15 07:04:00 Armen Olea [facility] COVID-19 (ID NOW RAPID TESTING) 2021-04-15 07:02:00 Sea Olea [facility] URINE DRUG (IMMUNOASSAY) - COMPREHENSIVE DRUG SCREEN W/O REFLEX 2021-04-15 07:01:00 Sea Olea [facility] URINALYSIS 2021-04-15 07:01:00 [facility] XR CHEST 1 VW 2021-04-15 06:40:00 Sea Olea [facility] N-TERMINAL PRO-BNP 2021-04-15 06:32:00 Sea Olea [facility] TROPONIN I 2021-04-15 06:32:00 Sea Olea [facility] COMP. METABOLIC PANEL (12080) 2021-04-15 06:32:00 Sea Olea [facility] ETHANOL 2021-04-15 06:32:00 Sea Olea [facility] CBC WITH DIFF 2021-04-15 06:32:00 Sea Olea [facility] NOTICE OF PRIVACY PRACTICES 2021-04-15 06:03:45 Doctor Unassigned, [facility] CONSENT/REFUSAL FOR DIAGNOSIS AND TREATMENT 2021-04-15 06:01:26 Doctor Unassigned, [facility] Encounters Start Date/Time End Date/Time Encounter Type Admission Type Attending [facility] Care Facility Care Department Encounter ID Source 2021-04-15 00:02:00 2021-04-15 03:32:00 Emergency X SAE OLEA [facility] ERT [id number] [facility] 2021-04-15 00:02:00 2021-04-15 03:32:00 Emergency Fredy Sea [facility] [id number] [facility] 2020-06-06 16:20:00 2020-06-06 16:20:00 Outpatient TESFAYE CHURCHILL [facility] [id number] [facility] 2020-05-14 16:20:00 2020-05-14 17:07:43 Outpatient TESFAYE [facility] [id number] [facility] 2019-11-20 15:00:00 2019-11-20 15:00:00 Outpatient DANELLE PENNY [facility] [id number] [facility] 2018-09-25 00:00:00 2018-09-25 00:00:00 Case Management Danae Freedman [facility] Building [id number] [facility] 2018-09-21 16:18:25 2018-09-21 16:44:59 Routine Visit Danelle Christianson [facility] [id number] [facility] Results Test Description Test Time Test Comments Results Result Co mments Source [facility] [id number] 07:05:51* Test Item Value Reference Range Interpretation Comme nts NT-proBNP (test code = 0532575473) 42 pg/mL See_Comment [Automated message] The system which generated this result transmitted reference range: <=125. The reference range was not used to interpret this result as normal/abnormal. LESA (test code = LESA) Biotin has been reported to cause a negative bias, interpret results relative to patient's use of biotin. Lab Interpretation (test code = 51450-2) [facility] [id number] 07:04:00* Test Item Value Reference Range Interpretation Comme nts POCT PREG (test code = 1605) negative On board controls acceptable with C Line (test code = 3574) present POCT PREG LOT # (test code = 3575) [id number] POCT PREG TEST DATE ( test code = 3576) Lab Interpretation (test cod e = 51076-0) [facility] 06:59:03* Test Item Value Reference Range Interpretation Comme nts ALCOHOL (test code = 8762383043) <10 mg/dL LESA (test code = LESA) <10 [id number] Toxic>100 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 PAN[facility] (14272)2021-04-15 06:52:09* Test Item Value Reference Range Interpretation Comme nts NA (test code = 7991139347) 134 mmol/L 135-145 L K (test code = 2420283868) 4.5 mmol/L 3.5-5.0 CL (test code = 7100527938) 108 mmol/L 98-108 CO2 TOTAL (test code = 8107464860) 18 mmol/L 23-31 L AGAP (test code = 9387141057) 2-16 BUN (test code = 4619930073) 8 mg/dL 7-23 GLUCOSE (test code = 8358142580) 91 mg/dL 70-110 CREATININE (test code = 9123568317) 0.62 mg/dL 0.50-1.04 TOTAL BILI (test code = 1437016361) 1.1 mg/dL 0.1-1.1 CALCIUM (test code = 1472196803) 9.1 mg/dL 8.6-10.6 T PROTEIN (test code = 5386928747) 7.8 g/dL 6.3-8.2 ALBUMIN (test code = 5465881792) 4.6 g/dL 3.5-5.0 ALK PHOS (test code = 7934632013) 63 U/L 34-122 ALTv (test code = 1742-6) 18 U/L 5-35 AST(SGOT) (test code = 7984892208) 35 U/L 13-40 eGFR (test code = 5189465455) mL/min/1.73m2 LESA (test code = LESA) Association of [...] or abnormalities in imaging tests). Lab Interpretation (test code = 64189-7) Abnormal [facility] WITH [id number] 06:39:26* Test Item Value Reference Range Interpretation Comme nts WBC (test code = 6690-2) See_Comment H [Automated message] The system which generated this result transmitted reference range: 4.30 - 11.10 10*3/?L. The reference range was not used to interpret this result as normal/abnormal. RBC (test code = 789-8) See_Comment [Automated message] The system which generated this result transmitted reference range: 3.93 - 5.25 10*6/?L. The reference range was not used to interpret this result as normal/abnormal. HGB (test code = 718-7) 13.9 g/dL 11.6-15.0 HCT (test code = 4544-3) 41.7 % 35.7-45.2 MCV (test code = 787-2) 89.3 fL 80.6-95.5 MCH (test code = 785-6) 29.8 pg 25.9-32.8 MCHC (test code = 786-4) 33.3 g/dL 31.6-35.1 RDW-SD (test code = 85422-1) 39.3 fL 39.0-49.9 RDW-CV (test code = 788-0) 12.1 % 12.0-15.5 PLT (test code = 777-3) See_Comment [Automated message] The system which generated this result transmitted reference range: 166 - 358 10*3/?L. The reference range was not used to interpret this result as normal/abnormal. MPV (test code = 03863-0) 11.4 fL 9.5-12.9 NRBC/100 WBC (test code = 3058742394) See_Comment [Automated message] The system which generated this result transmitted reference range: 0.0 - 10.0 /100 WBCs. The reference range was not used to interpret this result as normal/abnormal. NRBC x10^3 (test code = 5898197153) <0.01 See_Comment [Automated message] The system which generated this result transmitted reference range: 10*3/?L. The reference range was not used to interpret this result as normal/abnormal. GRAN MAT (NEUT) % (test code = 770-8) 79.5 % IMM GRAN % (test code = 0462212236) 0.50 % LYMPH % (test code = 736-9) 10.9 % MONO % (test code = 5905-5) 7.8 % EOS % (test code = 713-8) 0.9 % BASO % (test code = 706-2) 0.4 % GRAN MAT x10^3(ANC) (test code = 3786704635) 13.06 10*3/uL 1.88-7.09 H IMM GRAN x10^3 (test code = 3809253844) 0.08 10*3/uL 0.00-0.06 H LYMPH x10^3 (test code = 731-0) 1.80 10*3/uL 1.32-3.29 MONO x10^3 (test code = 742-7) 1.29 10*3/uL 0.33-0.92 H EOS x10^3 (test code = 711-2) 0.15 10*3/uL 0.03-0.39 BASO x10^3 (test code = 704-7) 0.07 10*3/uL 0.01-0.07 Lab Interpretation (test code = 73872-0) Abnormal [facility]"
[2023-05-16 12:30] LABS: Absolute Basophils 0.1 K/uL (0-0.5); Absolute Eosinophils 0.2 K/uL (0-0.5); Absolute Lymphocytes (CBC) 2.1 K/uL (0.7-4.9); Absolute Monocytes 0.6 K/uL (0.1-1.3); Absolute Neutrophil 9.6 K/uL (1.8-8.0); Basophils % 0.4 % (0-1.3); Eosinophils % 1.4 % (0-4.4); Hematocrit 40.5 % (36.0-45.0); Hemoglobin 13.4 g/dL (12.0-15.0); Lymphocytes % 16.5 % (15.3-44.8); MCH 29.2 pg (27.0-35.0); MCHC 33.1 g/dL (32.0-36.0); MCV 88.3 fL (80-100); Neutrophils % 76.7 % (41.7-73.7); Nucleated Red Blood Cells % 0.1 % (0-0); Platelets 316 thou/uL (152-406); RBC Red Blood Cell Count 4.59 M/uL (3.86-4.86); Red Cell Distribution Width 13.1 % (12.1-15.2)
[2023-05-16 12:31] LABS: Albumin 3.3 g/dL (3.4-5.0); Albumin/Globulin Ratio 0.9 (1.1-1.8); Bilirubin Total 0.5 mg/dL (0.2-1.0); Globulin 3.7 g/dL (2.3-3.5)
[2023-05-16 13:35] LABS: Specific Gravity 1.016 (1.005-1.030)
[2023-05-16 13:37] LABS: Specific Gravity 1.016 (1.005-1.030); Urine Bilirubin NEGATIVE (Negative); Urine Blood Negative (Negative); Urine Clarity Clear (Clear); Urine Color Light-Yellow (Yellow); Urine Glucose NEGATIVE (Negative); Urine Ketones NEGATIVE (Negative); Urine Microscopic Reflex YN NO UMIC; Urine Nitrite NEGATIVE (Negative); Urine Protein NEGATIVE (Negative); Urine Urobilinogen Normal (Normal); Urine pH 6.5 (5.0-7.0)
--- NOTE | 2023-05-16 14:13 | RAD REPORT ---
EXAM DESCRIPTION: CT - Abdomen Angio - 05/16/2023 1:07 pm CLINICAL HISTORY: ABD PAIN COMPARISON: Abdomen Pelvis W Contrast dated 05/17/2021; Abdomen Pelvis W Contrast dated 03/29/2019 TECHNIQUE: Thin axial CT images of the abdomen were obtained during administration of 100mL Isovue 3 70 IV contrast. Sagittal and coronal reconstructions as well as maximal intensity projection reconstr uction were generated and reviewed per an aortic angiography protocol. All CT scans are performed using dose optimization technique as appropriate and may include automated exposure control or mA/KV adjustment according to patient size. FINDINGS: Abdominal aorta is normal in diameter with no dissection or other acute aortic findings. R econstruction images show no significant findings. Celiac, SMA, OSWALDO, and renal arteries, and their proximal branches show no suspicious findings. Solid abdominal viscera show no significant findings. No mass or abnormal lymphadenopathy. Status post chol ecystectomy. Few mildly fluid distended loops of small bowel in the left flank with gradual transition to nondiste nded bowel. Mild bibasilar atelectatic changes in the dependent lower lungs. IMPRESSION: No acute abnormalities on CT angiogram of the aorta. Few mildly fluid distended loops of small bowel in the left flank. Findings may relate to mild ileus or enteritis.
--- NOTE | 2023-05-16 14:37 | EDPHYS ---
Physician Documentation [facility] Name: Erika Marr Age: 32 yrs Sex: Female : 1990 Arrival Date: 05/16/2023 Time: 11:45 Bed 19 Private MD: ED Physician Doug Sutherland HPI: 05/15 12:01 This 32 yrs old Female presents to ER via EMS with complaints of Abdominal sb4 Pain. 12:01 Patient reports epigastric abdominal pain that woke her up out of her sleep this sb4 morning. She does have a history of gastritis and cholecystectomy. Denies any alcohol abuse. 1 episode of vomiting, no diarrhea, had a normal bowel movement this morning. EMS administered fentanyl and Zofran with partial relief in symptoms. 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 - Social history:: Smoking status: Patient denies any tobacco usage or history of. ROS: 12:01 Constitutional: Negative for fever, chills, and weight loss, sb4 12:01 Abdomen/GI: Positive for abdominal pain, nausea, vomiting, 12:01 All other systems are negative, Exam: 12:01 Head/Face: Normocephalic, atraumatic. Eyes: Extra-ocular motions intact. Periorbital sb4 areas with no swelling, redness, or edema. ENT: Mucous membranes moist. Cardiovascular: Regular rate and rhythm with a normal S1 and S2. Respiratory: Lungs have equal breath sounds bilaterally, clear to auscultation and percussion. No rales, rhonchi or wheezes noted. No increased work of breathing, no retractions or nasal flaring. MS/ Extremity: Pulses equal, no cyanosis. Neurovascular intact. Full, normal range of motion. Neuro: Awake and alert, GCS 15, oriented to person, place, time, and situation. Motor strength 5/5 in all extremities. Sensory grossly intact. 12:01 Constitutional: The patient appears alert, awake, obese, in obvious distress, moderately distressed, uncomfortable, 12:01 Abdomen/GI: Inspection: abdomen appears normal, Bowel sounds: normal, Palpation: soft, mild abdominal tenderness, in the epigastric area, 12:01 Skin: Appearance: Moisture: diaphoretic, Vital Signs: 11:52 BP 124 / 91; Pulse 57; Resp 18; Temp 98; Pulse Ox 99% ; Pain 10/10; cp4 13:00 BP 107 / 52; Pulse 64; Resp 18; Pulse Ox 99% ; cp4 14:00 BP 112 / 61; Pulse 74; Resp 18; Pulse Ox 100% ; cp4 15:00 BP 114 / 71; Pulse 69; Resp 18; Pulse Ox 100% ; cp4 11:52 Pain Scale: Adult cp4 MDM: 11:51 Patient medically screened. sb4 12:01 Differential diagnosis: gastritis, Mesenteric ischemia or infarction, non-specific abd sb4 pain, pancreatitis, Peptic Ulcer Disease. 14:37 Data reviewed: vital signs, nurses notes, lab test result(s), radiologic studies, and sb4 as a result, I will discharge patient. Counseling: I had a detailed discussion with the patient and/or guardian regarding the historical points, exam findings, and any diagnostic results supporting the discharge/admit diagnosis, lab results, radiology results, to return to the emergency department if symptoms worsen or persist or if there are any questions or concerns that arise at home. 05/15 11:56 Order name: CBC with Diff; Complete Time: 12:31 sb4 05/15 11:56 Order name: CMP; Complete Time: 12:35 sb4 05/15 11:56 Order name: Lipase; Complete Time: 12:35 sb4 05/15 11:56 Order name: Test, Urine; Complete Time: 13:37 sb4 05/15 11:56 Order name: Urinalysis w/ reflexes; Complete Time: 13:37 sb4 05/15 12:36 Order name: CT Abdomen - Angio; Complete Time: 14:16 sb4 05/15 11:56 Order name: IV Saline Lock; Complete Time: 12:14 sb4 05/15 11:56 Order name: Labs collected and sent; Complete Time: 12:14 sb4 Administered Medications: 12:13 Drug: Famotidine IVP 20 mg IVP once; dilute with 10 mL 0.9% NaCl; give over 2 minutes cp4 Route: IVP; Site: left antecubital; 15:01 Follow up: Response: No adverse reaction cp4 12:14 Drug: NS 0.9% IV 1000 ml IV at 1 bolus Per protocol; 1000 mL bolus Route: IV; Rate: 1 cp4 bolus; Site: left antecubital; 15:15 Follow up: Response: No adverse reaction; IV Status: Completed infusion cp4 12:14 Drug: Ativan IVP 1 mg IVP once Route: IVP; Site: left antecubital; cp4 15:01 Follow up: Response: No adverse reaction cp4 15:01 Drug: Pantoprazole IVP 40 mg IVP once Route: IVP; Site: right antecubital; cp4 15:14 Follow up: Response: No adverse reaction cp4 15:01 Drug: morphine IVP or IV 4 mg IVP once over 4 mins Route: IVP; Infused Over: 4 mins; cp4 Site: right antecubital; 15:14 Follow up: Response: No adverse reaction; Pain is decreased cp4 15:01 Drug: Ondansetron IVP 4 mg IVP once; over 2 minutes Route: IVP; Site: right antecubital;cp4 15:14 Follow up: Response: No adverse reaction cp4 Disposition: 12:54 I was immediately available on-site in the Emergency Department for consultation in the ms3 care of the patient. Disposition Summary: 05/16/23 14:37 Discharge Ordered Notes: Location: Home sb4 Problem: new sb4 Symptoms: have improved sb4 Condition: Stable sb4 Diagnosis - Other viral enteritis sb4 - Acute gastritis sb4 Followup: sb4 - With: Wesley Badillo MD - When: As needed - Reason: Further diagnostic work-up, Recheck today's complaints, Re-evaluation by your physician Discharge Instructions: - Discharge Summary Sheet sb4 - Gastritis, Adult, Sutf-gd-Avey sb4 Forms: - Thank You Letter sb4 - Prescription Opioid Use sb4 - Patient Portal Instructions sb4 - Leadership Thank You Letter sb4 Prescriptions: - Protonix 40 mg Oral Tablet - take 1 tablet ORAL route once daily; 30 tablet; Refills: 0, Product Selection sb4 Permitted - Zofran 4 mg Oral Tablet - take 1 tablet ORAL route every 12 hours As needed; 20 tablet; Refills: 0, sb4 Product Selection Permitted - Tramadol 50 mg Oral Tablet - take 1 tablet ORAL route every 8 hours as needed; 12 tablet; Refills: 0, sb4 Product Selection Permitted Signatures: Dispatcher [employer] EDMS Doug Sutherland, DO [place] ms3 Krysta Xiao, SHERRI POLANCO sb4 Naa Mccrary cp4
--- NOTE | 2023-05-16 14:37 | ER ---
Nurse's Notes [facility] Name: Erika Marr Age: 32 yrs Sex: Female : 1990 Arrival Date: 05/16/2023 Time: 11:45 Bed 19 Private MD: Diagnosis: Other viral enteritis;Acute gastritis Presentation: 05/15 11:52 Chief complaint: EMS states: abdominal pain that started this morning Reports nausea cp4 and vomiting. Coronavirus screen: Client denies travel out of the [place] in the last 14 days. At this time, the client does not indicate any symptoms associated with coronavirus-19. Ebola Screen: Patient negative for fever greater than or equal to 101.5 degrees Fahrenheit, and additional compatible Ebola Virus Disease symptoms Patient denies exposure to infectious person. Patient denies travel to an Ebola-affected area in the 21 days before illness onset. No symptoms or risks identified at this time. Initial Sepsis Screen: Does the patient meet any 2 criteria? No. Patient's initial sepsis screen is negative. Does the patient have a suspected source of infection? No. Patient's initial sepsis screen is negative. Risk Assessment: Do you want to hurt yourself or someone else? Patient reports no desire to harm self or others. Onset of symptoms was May 16, 2023. Care prior to arrival: Medication(s) given: zofran 4 mg, Fentanyl 100 mcg. 11:52 Method Of Arrival: EMS: [facility] cp4 11:52 Acuity: VANITA 3 cp4 Triage Assessment: 11:54 General: Appears uncomfortable, Behavior is calm, cooperative, appropriate for age. cp4 Pain: Complains of pain in abdomen. GI: Bowel sounds present X 4 quads. Abdomen is tender to palpation in epigastric area Reports nausea, vomiting. 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 - Social history:: Smoking status: Patient denies any tobacco usage or history of. Screenin:53 [facility] ED Fall Risk Assessment (Adult) History of falling in the last 3 months, cp4 including since admission No falls in past 3 months (0 pts) Confusion or Disorientation No (0 pts) Intoxicated or Sedated No (0 pts) Impaired Gait No (0 pts) Mobility Assist Device Used No (0 pt) Altered Elimination No (0 pt) Score/Fall Risk Level 0 - 2 = Low Risk Oriented to surroundings, Maintained a safe environment, Assessed \T\ reinforced patient's understanding of fall precautions, Hourly rounding (assess needs \T\ fall precautionary measures) done. Abuse screen: Denies threats or abuse. Nutritional screening: No deficits noted. Tuberculosis screening: No symptoms or risk factors identified. Assessment: 12:53 Reassessment: No changes from previously documented assessment. General:. cp4 15:02 Reassessment: Pending discharge. Awaiting shot time. cp4 Vital Signs: 11:52 BP 124 / 91; Pulse 57; Resp 18; Temp 98; Pulse Ox 99% ; Pain 10/10; cp4 13:00 BP 107 / 52; Pulse 64; Resp 18; Pulse Ox 99% ; cp4 14:00 BP 112 / 61; Pulse 74; Resp 18; Pulse Ox 100% ; cp4 15:00 BP 114 / 71; Pulse 69; Resp 18; Pulse Ox 100% ; cp4 11:52 Pain Scale: Adult cp4 ED Course: 11:51 Patient arrived in ED. cp4 11:51 Krysta Xiao PA-C is PHCP. sb4 11:51 Doug Sutherland DO is Attending Physician. sb4 11:51 Naa Mccrary is Primary Nurse. cp4 11:54 Triage completed. cp4 11:55 Arm band placed on left wrist. Patient placed in an exam room, on a stretcher. cp4 12:14 CBC with Diff Sent. cp4 12:14 CMP Sent. cp4 12:14 Lipase Sent. cp4 12:53 Bed in low position. Call light in reach. Side rails up X 1. Provided Education on: cp4 abdominal pain. 12:53 No provider procedures requiring assistance completed. Inserted saline lock: 22 gauge cp4 in right antecubital area, using aseptic technique. Maintain EMS IV. Dressing intact. Good blood return noted. Site clean \T\ dry. Gauge \T\ site: 20G LAC. 13:08 CT Abdomen - Angio In Process Unspecified. EDMS 13:28 Test, Urine Sent. cp4 13:28 Urinalysis w/ reflexes Sent. cp4 14:37 Wesley Badillo MD is Referral Physician. sb4 15:22 intact, bleeding controlled, No redness/swelling at site. Pressure dressing applied. cp4 Administered Medications: 12:13 Drug: Famotidine IVP 20 mg IVP once; dilute with 10 mL 0.9% NaCl; give over 2 minutes cp4 Route: IVP; Site: left antecubital; 15:01 Follow up: Response: No adverse reaction cp4 12:14 Drug: NS 0.9% IV 1000 ml IV at 1 bolus Per protocol; 1000 mL bolus Route: IV; Rate: 1 cp4 bolus; Site: left antecubital; 15:15 Follow up: Response: No adverse reaction; IV Status: Completed infusion cp4 12:14 Drug: Ativan IVP 1 mg IVP once Route: IVP; Site: left antecubital; cp4 15:01 Follow up: Response: No adverse reaction cp4 15:01 Drug: Pantoprazole IVP 40 mg IVP once Route: IVP; Site: right antecubital; cp4 15:14 Follow up: Response: No adverse reaction cp4 15:01 Drug: morphine IVP or IV 4 mg IVP once over 4 mins Route: IVP; Infused Over: 4 mins; cp4 Site: right antecubital; 15:14 Follow up: Response: No adverse reaction; Pain is decreased cp4 15:01 Drug: Ondansetron IVP 4 mg IVP once; over 2 minutes Route: IVP; Site: right antecubital;cp4 15:14 Follow up: Response: No adverse reaction cp4 Medication: 12:53 VIS not applicable for this client. cp4 Outcome: 14:37 Discharge ordered by . sb4 15:22 Discharged to home ambulatory, cp4 15:22 Condition: stable 15:22 Discharge instructions given to patient, Instructed on discharge instructions, follow up and referral plans. medication usage, Demonstrated understanding of instructions, follow-up care, medications, Prescriptions given X 3, 15:27 Patient left the ED. cp4 Signatures: Dispatcher [employer] EDKrysta Cancino PA-C PA-C sb4 Naa Mccrary cp4
[2023-05-16 16:22] VITALS: BP 114/71; TEMP 98; O2SAT 100
== END ==
LOC: ER 11:45
DX: K29.00 Acute gastritis without bleeding (principal); A08.39 Other viral enteritis
CPT/HCPCS: 36415; 74175; 80053; 81003; 81025; 83690; 85025; 99284; C9113; J2405; J7030; Q9967

== ENCOUNTER 2023-10-09 08:37 | Emergency (ER) | payer SELFPAY ==
[2023-10-09] MEDS ORDERED: MORPHINE 4 MG/ML SYR ONE ×2 (08:58→09:27)
[2023-10-09] MEDS ORDERED: FAMOTIDINE 20 MG/2 ML VIAL IV ONE (08:58)
[2023-10-09] MEDS ORDERED: ONDANSETRON 4 MG/2 ML VIAL ONE (08:58)
[2023-10-09] MEDS ORDERED: NA CHLORIDE 0.9% 1,000 ML ONE (08:59)
[2023-10-09 09:14] LABS: Absolute Basophils 0.1 K/uL (0-0.5); Absolute Eosinophils 0.3 K/uL (0-0.5); Absolute Monocytes 0.9 K/uL (0.1-1.3); Absolute Neutrophil 6.3 K/uL (1.8-8.0); Basophils % 0.7 % (0-1.3); Eosinophils % 2.7 % (0-4.4); Hematocrit 43.3 % (36.0-45.0); Hemoglobin 14.5 g/dL (12.0-15.0); Lymphocytes % 28.4 % (15.3-44.8); MCH 29.9 pg (27.0-35.0); MCHC 33.4 g/dL (32.0-36.0); MCV 89.6 fL (80-100); Monocytes % 8.9 % (3.3-12.3); Neutrophils % 59.3 % (41.7-73.7); Nucleated Red Blood Cells % 0.1 % (0-0); Platelets 260 thou/uL (152-406); RBC Red Blood Cell Count 4.84 M/uL (3.86-4.86)
[2023-10-09 09:30] LABS: Albumin 3.8 g/dL (3.4-5.0); Anion Gap 7.8 mEq/L (5.0-15.0); Bilirubin Total 0.4 mg/dL (0.2-1.0); Globulin 3.8 g/dL (2.3-3.5); Potassium 3.8 mEq/L (3.5-5.1); Protein, Total 7.6 g/dL (6.4-8.2)
[2023-10-09 10:26] LABS: Specific Gravity 1.018 (1.005-1.030); Sqamous Epithelial <5 /HPF (None Seen); Urine Bacteria None Seen /HPF (<20); Urine Bilirubin NEGATIVE (Negative); Urine Blood Negative (Negative); Urine Clarity Clear (Clear); Urine Color Light-Yellow (Yellow); Urine Culture Reflex Order NOT NEEDED; Urine Glucose NEGATIVE (Negative); Urine Ketones NEGATIVE (Negative); Urine Microscopic Reflex YN ORDER UMIC; Urine Mucus Slight /HPF (None Seen); Urine Nitrite NEGATIVE (Negative); Urine Protein NEGATIVE (Negative); Urine RBC <5 /HPF (None Seen); Urine Urobilinogen Normal (Normal); Urine WBC <5 /HPF (<5); Urine pH 6.5 (5.0-7.0)
--- NOTE | 2023-10-09 11:28 | RAD REPORT ---
EXAM DESCRIPTION: CTAbdomen Pelvis W Contrast - 10/09/2023 11:12 am CLINICAL HISTORY: epigastric abd pain COMPARISON: Abdomen Pelvis W Contrast dated 05/17/2021; Abdomen Pelvis W Contrast dated 03/29/2019 TECHNIQUE: CT of the abdomen and pelvis was performed. All CT scans are performed using dose optimization technique as appropriate and may include automated exposure control or mA/KV adjustment according to patient size. FINDINGS: Lower chest: No acute abnormality. Small hiatal hernia. Liver: No acute abnormality or suspicious lesions. Biliary: No biliary ductal dilatation. Cholecystectomy Stomach: No significant focal abnormality. Duodenum: No significant focal abnormality. Pancreas: No significant abnormality. Spleen: No significant abnormality. Adrenal: No suspicious lesions. Kidney/ureter: No hydronephrosis. No renal calculi. Too small to characterize and/or benign appearing renal lesions are noted. Retroperitoneum: No retroperitoneal adenopathy. Vascular: No aneurysm. Bowel: No significant focal abnormality. Normal appendix. Peritoneum: No ascites or free air. Bladder: Grossly unremarkable. Reproductive: Nabothian cysts noted. No adnexal mass. Trace free fluid which is likely physiologic. Bones: No acute fracture. Other: n/a IMPRESSION: No acute intra-abdominal or pelvic finding. Normal appendix.
--- NOTE | 2023-10-09 11:51 | EDPHYS ---
Physician Documentation [facility] Name: Erika Marr Age: 32 yrs Sex: Female : 1990 Arrival Date: 10/09/2023 Time: 08:37 Bed 16 Private MD: ED Physician Osorio Nunes HPI: 10/08 09:09 This 32 yrs old Female presents to ER via Ambulatory with complaints of rn Abdominal Pain. 09:09 The patient presents with abdominal pain in the epigastric area. Onset: The rn symptoms/episode began/occurred yesterday. The symptoms do not radiate. Associated signs and symptoms: Pertinent positives: nausea and vomiting, diarrhea, Pertinent negatives: blood in stools, chest pain, fever. Modifying factors: The symptoms are alleviated by nothing, the symptoms are aggravated by nothing. Severity of pain: At its worst the pain was moderate in the emergency department the pain is unchanged. The patient has experienced a previous episode. The patient has not recently seen a physician. Historical: - Allergies: 08:56 No Known Allergies; bp - PSHx: 08:56 section; Cholecystectomy; bp - Immunization history:: Adult Immunizations up to date. - Infectious Disease History:: Denies. - Social history:: Smoking status: Patient denies any tobacco usage or history of. - Family history:: not pertinent. - Hospitalizations: : No recent hospitalization is reported. ROS: 09:09 Constitutional: Negative for fever, chills, and weight loss, Cardiovascular: Negative rn for chest pain, palpitations, and edema, Respiratory: Negative for shortness of breath, cough, wheezing, and pleuritic chest pain, Abdomen/GI: Positive for epigastric abdominal pain with nausea/vomiting/diarrhea. Back: Negative for injury and pain, MS/Extremity: Negative for injury and deformity, Skin: Negative for injury, rash, and discoloration, Neuro: Negative for headache, weakness, numbness, tingling, and seizure, Exam: 09:09 Constitutional: This is a well developed, well nourished patient who is awake, alert, rn and in no acute distress. Cardiovascular: Regular rate and rhythm. No pulse deficits. Respiratory: Mild tachypnea, speaking full sentences, seems secondary to pain Abdomen/GI: Soft, mild periumbilical and epigastric tenderness Vital Signs: 08:55 BP 122 / 87; Pulse 67; Resp 16; Temp 97.6; Pulse Ox 100% ; bp 09:08 BP 111 / 76; Pulse 59; Resp 24; Pulse Ox 100% ; bp 12:07 BP 122 / 73; Pulse 65; Resp 16; Pulse Ox 100% ; bp MDM: 08:40 Patient medically screened. rn 09:11 ED course: Patient reports previous cholecystectomy. rn 11:50 Differential diagnosis: appendicitis, bowel obstruction, gastritis, gastroesophageal rn reflux disease, non-specific abd pain, pancreatitis, Peptic Ulcer Disease, Perf. Duodenal Ulcer, Perf. Gastric Ulcer. Data reviewed: vital signs, nurses notes, lab test result(s), radiologic studies, CT scan, and as a result, I will discharge patient. Counseling: I had a detailed discussion with the patient and/or guardian regarding the historical points, exam findings, and any diagnostic results supporting the discharge/admit diagnosis, lab results, radiology results, the need for outpatient follow up, to return to the emergency department if symptoms worsen or persist or if there are any questions or concerns that arise at home. Response to treatment: the patient's symptoms have markedly improved after treatment, and as a result, I will discharge patient. Special discussion: Based on the patient's Hx, exam, and Dx evaluation, there is no indication for emergent surgery or inpatient Tx. It is understood by the patient/guardian that if the Sx's persist or worsen they need to return immediately for re-evaluation. I discussed with the patient/guardian in detail that at this point there is no indication for admission to the hospital. It is understood, however, that if the symptoms persist or worsen the patient needs to return immediately for re-evaluation. 10/08 08:58 Order name: CBC with Diff; Complete Time: 09:49 rn 10/08 08:58 Order name: CMP; Complete Time: 09:49 rn 10/08 08:58 Order name: Lipase; Complete Time: 09:49 rn 10/08 08:58 Order name: Test, Urine; Complete Time: 10:27 rn 10/08 08:58 Order name: Urinalysis w/ reflexes; Complete Time: 10:27 rn 10/08 08:58 Order name: CT Abd/Pelvis - IV Contrast Only; Complete Time: 11: rn 10/08 08:58 Order name: IV Saline Lock; Complete Time: 09: rn 10/08 08:58 Order name: Labs collected and sent; Complete Time: 09:07 rn Administered Medications: 09:07 Drug: NS 0.9% IV 1000 ml IV at 1 bolus Per protocol; 1000 mL bolus Route: IV; Rate: 1 bp bolus; Site: left wrist; 10:33 Follow up: IV Status: Completed infusion; IV Intake: 1000ml bp 09:07 Drug: Famotidine IVP 20 mg IVP once; dilute with 10 mL 0.9% NaCl; give over 2 minutes bp Route: IVP; Site: left wrist; 10:33 Follow up: Response: No adverse reaction bp 09:07 Drug: Ondansetron IVP 4 mg IVP once; over 2 minutes Route: IVP; Site: left wrist; bp 10:33 Follow up: Response: No adverse reaction bp 09:07 Drug: morphine IVP or IV 4 mg IVP once over 4 mins Route: IVP; Infused Over: 4 mins; bp Site: left wrist; 10:33 Follow up: Response: No adverse reaction bp 09:30 Drug: morphine IVP or IV 4 mg IVP once over 4 mins Route: IVP; Infused Over: 4 mins; bp Site: left wrist; 10:34 Follow up: Response: No adverse reaction bp 10:25 Drug: Droperidol IVP 1.25 mg IVP once Route: IVP; Site: left wrist; bp 10:34 Follow up: Response: No adverse reaction bp Disposition Summary: 10/09/23 11:50 Discharge Ordered Notes: Location: Home rn Problem: new rn Symptoms: have improved rn Condition: Stable rn Diagnosis - Upper abdominal pain, unspecified rn Followup: rn - With: Wesley Badillo MD - When: As needed - Reason: Recheck today's complaints, Re-evaluation by your physician Discharge Instructions: - Discharge Summary Sheet rn - Abdominal Pain, Adult rn Forms: - Medication Reconciliation Form rn - Antibiotic churn tender - Prescription Opioid Use rn - Patient Portal Instructions rn - Leadership Thank You Letter rn Prescriptions: - Protonix 40 mg Oral Tablet - take 1 tablet ORAL route once daily; 30 tablet; Refills: 0, Product Selection rn Permitted Signatures: Dispatcher [employer] Osorio Larkin MD MD rn Peltier, Brian, RN RN bp
--- NOTE | 2023-10-09 11:51 | ER ---
Nurse's Notes [facility] Name: Erika Marr Age: 32 yrs Sex: Female : 1990 Arrival Date: 10/09/2023 Time: 08:37 Bed 16 Private MD: Diagnosis: Upper abdominal pain, unspecified Presentation: 10/08 08:55 Chief complaint: Patient states: EPIGASTRIC PAIN WITH DIARRHEA, SAME S/S 3 DAYS AGO. bp Coronavirus screen: At this time, the client does not indicate any symptoms associated with coronavirus-19. Ebola Screen: No symptoms or risks identified at this time. Initial Sepsis Screen: Does the patient meet any 2 criteria? No. Patient's initial sepsis screen is negative. Does the patient have a suspected source of infection? No. Patient's initial sepsis screen is negative. Risk Assessment: Do you want to hurt yourself or someone else?. Onset of symptoms was October 09, 2023 at 06:00. 08:55 Method Of Arrival: Ambulatory bp 08:55 Acuity: VANITA 3 bp Triage Assessment: 08:56 General: Appears distressed, uncomfortable, obese, Behavior is cooperative, appropriate bp for age, anxious. Pain: Complains of pain in abdomen. GI: Reports upper abdominal pain, diarrhea, nausea. Historical: - Allergies: 08:56 No Known Allergies; bp - PSHx: 08:56 section; Cholecystectomy; bp - Immunization history:: Adult Immunizations up to date. - Infectious Disease History:: Denies. - Social history:: Smoking status: Patient denies any tobacco usage or history of. - Family history:: not pertinent. - Hospitalizations: : No recent hospitalization is reported. Screenin:08 [facility] ED Fall Risk Assessment (Adult) History of falling in the last 3 months, bp including since admission No falls in past 3 months (0 pts) Confusion or Disorientation No (0 pts) Intoxicated or Sedated No (0 pts) Impaired Gait No (0 pts) Mobility Assist Device Used No (0 pt) Altered Elimination No (0 pt) Score/Fall Risk Level 0 - 2 = Low Risk. Abuse screen: Denies threats or abuse. Denies injuries from another. Nutritional screening: No deficits noted. Tuberculosis screening: No symptoms or risk factors identified. Assessment: 09:08 General: Appears distressed, uncomfortable, obese, Behavior is cooperative, appropriate bp for age, anxious. Pain: Complains of pain in abdomen. Neuro: No deficits noted. Cardiovascular: No deficits noted. Respiratory: No deficits noted. GI: Bowel sounds present X 4 quads. Abd is soft X 4 quads. Vital Signs: 08:55 BP 122 / 87; Pulse 67; Resp 16; Temp 97.6; Pulse Ox 100% ; bp 09:08 BP 111 / 76; Pulse 59; Resp 24; Pulse Ox 100% ; bp 12:07 BP 122 / 73; Pulse 65; Resp 16; Pulse Ox 100% ; bp ED Course: 08:38 Patient arrived in ED. mr 08:40 Osorio Nunes MD is Attending Physician. rn 08:55 Rico Mccann RN is Primary Nurse. bp 08:56 Triage completed. bp 08:56 Arm band placed on. bp 08:57 Initial lab(s) drawn, by me. Inserted saline lock: 22 gauge in left wrist, using hb aseptic technique. Blood collected. Flushed with 10 mL NS. 09:08 Patient has correct armband on for positive identification. bp 10:01 Radiology exam delayed due to test not completed at this time. sm9 11:14 CT Abd/Pelvis - IV Contrast Only In Process Unspecified. EDMS 11:50 Wesley Badillo MD is Referral Physician. rn 12:08 No provider procedures requiring assistance completed. IV discontinued, intact, bp bleeding controlled, No redness/swelling at site. Pressure dressing applied. Administered Medications: 09:07 Drug: NS 0.9% IV 1000 ml IV at 1 bolus Per protocol; 1000 mL bolus Route: IV; Rate: 1 bp bolus; Site: left wrist; 10:33 Follow up: IV Status: Completed infusion; IV Intake: 1000ml bp 09:07 Drug: Famotidine IVP 20 mg IVP once; dilute with 10 mL 0.9% NaCl; give over 2 minutes bp Route: IVP; Site: left wrist; 10:33 Follow up: Response: No adverse reaction bp 09:07 Drug: Ondansetron IVP 4 mg IVP once; over 2 minutes Route: IVP; Site: left wrist; bp 10:33 Follow up: Response: No adverse reaction bp 09:07 Drug: morphine IVP or IV 4 mg IVP once over 4 mins Route: IVP; Infused Over: 4 mins; bp Site: left wrist; 10:33 Follow up: Response: No adverse reaction bp 09:30 Drug: morphine IVP or IV 4 mg IVP once over 4 mins Route: IVP; Infused Over: 4 mins; bp Site: left wrist; 10:34 Follow up: Response: No adverse reaction bp 10:25 Drug: Droperidol IVP 1.25 mg IVP once Route: IVP; Site: left wrist; bp 10:34 Follow up: Response: No adverse reaction bp Medication: 09:08 VIS not applicable for this client. bp Intake: 10:33 IV: 1000ml; Total: 1000ml. bp Outcome: 11:50 Discharge ordered by . rn 12:08 Discharged to home ambulatory, bp 12:08 Condition: stable 12:08 Discharge instructions given to patient, Instructed on discharge instructions, follow up and referral plans. medication usage, Demonstrated understanding of instructions, follow-up care, medications, Prescriptions given X 1, 12:08 Patient left the ED. bp Signatures: Dispatcher [employer] EDAK Leidy Leon, Reg Reg Osorio Snowden MD MD rn Baxter, Heather, RN RN Rico Bailey RN RN bp Jaz Mack 9
[2023-10-09 12:30] VITALS: TEMP 97.6; O2SAT 100
[2023-10-09 12:33] VITALS: BP 122/73
== END 2023-10-09 12:08 | disposition home or self-care (01) ==
LOC: ER 08:37
DX: R10.13 Epigastric pain (principal); R11.2 Nausea with vomiting, unspecified
CPT/HCPCS: 36415; 74177; 80053; 81001; 81025; 83690; 85025; 96361; 96374; 96375; 99284; J2405; J7030; Q9967

== ENCOUNTER 2024-02-19 09:33 | Emergency (ER) | payer SELFPAY ==
[2024-02-19] MEDS ORDERED: ALBUTEROL 2.5 MG/3 ML NEB SOL ONE ×2 (09:43→11:22)
[2024-02-19] MEDS ORDERED: IPRATROPIUM BROM 0.5MG/2.5ML ONE (09:44)
[2024-02-19] MEDS ORDERED: METHYLPREDNISOLONE 125 MG INJ ONE (10:03)
[2024-02-19] MEDS ORDERED: LORazepam 2 MG/ML VIAL ONE (10:04)
[2024-02-19] MEDS ORDERED: KETOROLAC 30 MG/ML INJ ONE (10:04)
[2024-02-19] MEDS ORDERED: NA CHLORIDE 0.9% 1,000 ML ONE (10:04)
[2024-02-19 10:11] LABS: Absolute Basophils 0.1 K/uL (0-0.5); Absolute Eosinophils 0.5 K/uL (0-0.5); Absolute Lymphocytes (CBC) 2.9 K/uL (0.7-4.9); Absolute Neutrophil 7.1 K/uL (1.8-8.0); Basophils % 0.6 % (0-1.3); Hematocrit 44.3 % (36.0-45.0); Hemoglobin 14.8 g/dL (12.0-15.0); Lymphocytes % 24.8 % (15.3-44.8); MCH 29.6 pg (27.0-35.0); MCHC 33.5 g/dL (32.0-36.0); MCV 88.3 fL (80-100); MPV 8.9 fL (7.6-11.3); Monocytes % 8.7 % (3.3-12.3); Neutrophils % 61.9 % (41.7-73.7); Nucleated Red Blood Cells % 0.1 % (0-0); Platelets 267 thou/uL (152-406); RBC Red Blood Cell Count 5.02 M/uL (3.86-4.86); Red Cell Distribution Width 12.9 % (12.1-15.2)
[2024-02-19 10:21] LABS: Anion Gap 11.5 mEq/L (5.0-15.0); Potassium 3.5 mEq/L (3.5-5.1)
[2024-02-19 10:34] LABS: SARS-CoV-2 Antigen CONTROL BLUE LINE VIS/BG OK; SARS-CoV-2 Antigen Rapid Res Negative (Negative)
--- NOTE | 2024-02-19 10:59 | RAD REPORT ---
EXAMINATION: TWO VIEW CHEST XR CLINICAL INDICATION: Chest pain;Congestion;Cough TECHNIQUE: 2 views of the chest was performed. COMPARISON: No prior exam. FINDINGS: The lungs are well inflated and clear. The heart is normal in size. No displaced fractures evident. IMPRESSION: No acute or significant abnormalities.
[2024-02-19] MEDS ORDERED: MAGNESIUM SULFATE 1 gm IVPB 1 GM/100 ML BAG IV ONE (11:22)
--- NOTE | 2024-02-19 11:47 | RAD REPORT ---
EXAMINATION: CT CHEST WITHOUT CONTRAST CLINICAL INDICATION: DYSPNEA TECHNIQUE: Routine CT scan of the chest without intravenous contrast. One or more of the following do se reduction techniques were used: Automated exposure control, adjustment of the mA and/or kV according to patient size, and/or iterative reconstruction. Unless otherwise specified, incidental fi ndings do not require dedicated imaging follow-up. COMPARISON: 02/19/2024 FINDINGS: LOWER NECK: Visualized thyroid gland and soft tissues are normal. LUNGS: Mild linear atelectasis or alveolitis is seen in both posterior lung bases. No focal consolida tion to indicate pneumonia. PLEURA: No pleural effusion. No pneumothorax. . MEDIASTINUM AND LYMPH NODES: No mediastinal mass or fluid collection. Normal size mediastinal, hilar, and axillary lymph nodes. OSSEOUS STRUCTURES AND CHEST WALL: Intact. UPPER ABDOMEN: No significant abnormalities. Cholecystectomy clips. IMPRESSION: Mild linear opacities in both posterior lung bases favor mild atelectasis or alveolitis. No findings typical of bacterial pneumonia is seen. Examination limited by lack of IV contrast.
[2024-02-19 12:06] LABS: NT PRO-BNP 32 pg/mL (<125); Troponin High Sensitivity < 3.0 pg/mL (<58.9)
--- NOTE | 2024-02-19 12:48 | EDPHYS ---
Physician Documentation [facility] Name: Erika Marr Age: 33 yrs Sex: Female : 1990 Arrival Date: 02/19/2024 Time: 09:33 Bed 8 Private MD: ZHANG Physician Margarito Flores HPI: 02/18 09:43 This 33 yrs old Female presents to ER via Wheelchair with complaints of sb4 Breathing Difficulty, Chest Pain, Wheezing. 09:43 patient reports feeling poorly since yesterday- fever, cough, congestion, wheezing, sb4 patton. states she woke up several times throughout the night gasping for air. she denies any history of asthma. does vape daily. has taken tylenol for the fever. states her mom has been sick as well. 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 - Social history:: Smoking status: Reported history of juuling and/or vaping. ROS: 09:43 Constitutional: Negative for fever, chills, and weight loss, sb4 09:43 ENT: Positive for sinus congestion, 09:43 Cardiovascular: Positive for chest pain, 09:43 Respiratory: Positive for cough, dyspnea on exertion, shortness of breath, wheezing, 09:43 All other systems are negative, Exam: 09:43 Head/Face: Normocephalic, atraumatic. Eyes: Extra-ocular motions intact. Periorbital sb4 areas with no swelling, redness, or edema. ENT: Mucous membranes moist. Cardiovascular: Regular rate and rhythm with a normal S1 and S2. Abdomen/GI: Soft, non-tender, no distension. Skin: Warm, dry with normal turgor. Normal color with no rashes, no lesions, and no evidence of cellulitis. 09:43 Constitutional: The patient appears alert, awake, in obvious distress, mildly distressed, 09:43 Respiratory: mild respiratory distress is noted, Respirations: labored breathing, that is mild, tachypnea, 28 Breath sounds: wheezing: expiratory is heard diffusely, Vital Signs: 09:37 BP 144 / 105; Pulse 88; Resp 28; Temp 97.1; Pulse Ox 100% on R/A; Weight 86.18 kg; iw Height 5 ft. 2 in. ; Pain 6/10; 10:17 BP 149 / 87; Pulse 93; Resp 20 S; Pulse Ox 95% on R/A; kc6 12:47 BP 119 / 77; Pulse 95; Resp 19 S; Pulse Ox 100% on R/A; kc6 09:37 Body Mass Index 34.75 (86.18 kg, 157.48 cm) iw 09:37 Pain Scale: Adult iw MDM: 09:38 Medical Screening Exam initiated sb4 11:33 ED course: patient is still pale, wheezing, tachypneic. sb4 12:46 Antibiotic administration: The patient is discharged and will get outpatient sb4 antibiotics, Zithromax. Data reviewed: vital signs, nurses notes, lab test result(s), radiologic studies, and as a result, I will discharge patient. Counseling: I had a detailed discussion with the patient and/or guardian regarding the historical points, exam findings, and any diagnostic results supporting the discharge/admit diagnosis, the presence of at least one elevated blood pressure reading (>120/80) during this emergency department visit, lab results, radiology results, to return to the emergency department if symptoms worsen or persist or if there are any questions or concerns that arise at home. ED course: patient feels better, work of breathing has improved, wheezing has decreased. patient speaks in full sentences, in no distress, will discharge home at this time with return precautions. 02/18 09:37 Order name: SARS RAPID; Complete Time: 10:34 sb4 02/18 09:37 Order name: Flu; Complete Time: 10:35 sb4 02/18 09:37 Order name: RSV; Complete Time: 10:34 sb4 02/18 09:42 Order name: CBC with Diff; Complete Time: 10:12 sb4 02/18 09:42 Order name: BMP; Complete Time: 10:21 sb4 02/18 09:42 Order name: Test, Serum; Complete Time: 10:28 sb4 02/18 11:05 Order name: BNP; Complete Time: 12:07 sb4 02/18 11:05 Order name: Troponin HS; Complete Time: 12:07 sb4 02/18 09:37 Order name: Chest Pa And Lat (2 Views) XRAY; Complete Time: 11:00 sb4 02/18 11:05 Order name: Chest Wo Con CT; Complete Time: 11:47 sb4 02/18 09:42 Order name: IV Start; Complete Time: 10:01 sb4 Administered Medications: 09:47 Drug: DuoNeb Nebulize (3:1) (2.5 mg - 0.5 mg) 3 ml Nebulizer once Route: Nebulizer; iw 10:17 Follow up: Response: No adverse reaction; Wheezing unchanged kc6 10:16 Drug: MethylPrednisoLONE IVP 125 mg IVP once Route: IVP; Site: right antecubital; kc6 12:47 Follow up: Response: No adverse reaction kc6 10:16 Drug: NS 0.9% IV 1000 ml IV at 1000 ml once; to be given as a bolus over 60 minutes kc6 Route: IV; Rate: 1000 ml; Site: right antecubital; 12:48 Follow up: Response: No adverse reaction; IV Status: Completed infusion; IV Intake: kc6 1000ml 10:17 Drug: Ketorolac IVP 15 mg IVP once Route: IVP; Site: right antecubital; kc6 12:48 Follow up: Response: No adverse reaction kc6 10:17 Drug: Ativan IVP 0.5 mg IVP once Route: IVP; Site: right antecubital; kc6 12:48 Follow up: Response: No adverse reaction; RASS: Alert and Calm (0) kc6 11:44 Drug: Albuterol Inhalation 2.5 mg Inhalation once Route: Inhalation; ph 11:44 Drug: Magnesium Sulfate IVPB 1 grams IVPB once over 1 hrs Route: IVPB; Infused Over: 1 ph hrs; Site: right antecubital; 12:48 Follow up: Response: No adverse reaction; IV Status: Completed infusion; IV Intake: [id number] Disposition Summary: 02/19/24 12:47 Discharge Ordered Notes: Location: Home sb4 Problem: new sb4 Symptoms: have improved sb4 Condition: Stable sb4 Diagnosis - Acute upper respiratory infection, unspecified sb4 Followup: sb4 - With: Emergency Department - When: As needed - Reason: Trouble breathing, Worsening of condition Discharge Instructions: - Discharge Summary Sheet sb4 - Upper Respiratory Infection, Adult, [id number] sb4 Forms: - Work release form kc6 - Antibiotic Education sb4 - Patient Portal Instructions sb4 - Leadership Thank You Letter sb4 Prescriptions: - albuterol sulfate 90 mcg/actuation Inhalation HFA Aerosol Inhaler - inhale 1 inhalation INHALATION route 6 times per day as needed for shortness of sb4 breath or wheezing; 1 Applicator; Refills: 0, Product Selection Permitted - azithromycin 250 mg Oral tablet - take 1 dose pack ORAL route as directed on dose pack For 250 mg dose pack: take sb4 500 mg today (day 1), then 250 mg for 4 days (days 2-5); 1 Pack; Refills: 0, Product Selection Permitted - Tessalon Perles 100 mg Oral Capsule - take 1 capsule ORAL route every 8 hours As needed; 15 capsule; Refills: 0, sb4 Product Selection Permitted - Prednisone 20 mg Oral Tablet - take 2 tablets ORAL route once daily for 5 days; 10 tablet; Refills: 0, Product sb4 Selection Permitted Addendum: 02/23/2024 12:44 Co-signature as Attending Physician, Margarito Flores MD I agree with the assessment and c menezes plan of care. Signatures: Dispatcher [employer] Margarito Ambrose MD MD cha Williams, Irene, RN Lena Zapata RN RN Radha Valenzuela RN RN kcKrysta Morrison, SHERRI PASocorro sb4 Corrections: (The following items were deleted from the chart) 02/18 09:43 09:42 CBC+H.LAB.BRZ ordered. EDMS EDMS 09:43 09:42 BASIC METABOLIC PANEL+C.LAB.BRZ ordered. EDMS EDMS :43 09:43 TEST, SERUM+SC.LAB.BRZ ordered. EDMS EDMS
--- NOTE | 2024-02-19 12:48 | ER ---
Nurse's Notes [facility] Name: Erika Marr Age: 33 yrs Sex: Female : 1990 Arrival Date: 02/19/2024 Time: 09:33 Bed 8 Private MD: Diagnosis: Acute upper respiratory infection, unspecified Presentation: 02/18 09:36 Chief complaint: Patient states: difficulty breathing, wheezing, fever, since last iw night + cough, congestion. Coronavirus screen: Client presents with at least one sign or symptom that may indicate coronavirus-19. Ebola Screen: No symptoms or risks identified at this time. Risk Assessment: Do you want to hurt yourself or someone else? Patient reports no desire to harm self or others. Onset of symptoms was February 18, 2024. 09:36 Method Of Arrival: Wheelchair iw 09:36 Acuity: VANITA 3 iw 10:19 Initial Sepsis Screen: Does the patient meet any 2 criteria? RR > 20 per min. HR > 90 kc6 bpm. Does the patient have a suspected source of infection? No. Patient's initial sepsis screen is negative. 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 - Social history:: Smoking status: Reported history of juuling and/or vaping. Screenin:17 [facility] ED Fall Risk Assessment (Adult) History of falling in the last 3 months, kc6 including since admission No falls in past 3 months (0 pts) Confusion or Disorientation No (0 pts) Intoxicated or Sedated No (0 pts) Impaired Gait No (0 pts) Mobility Assist Device Used No (0 pt) Altered Elimination No (0 pt) Score/Fall Risk Level 0 - 2 = Low Risk Oriented to surroundings, Maintained a safe environment. Abuse screen: Denies threats or abuse. Denies injuries from another. Nutritional screening: No deficits noted. Tuberculosis screening: No symptoms or risk factors identified. Assessment: 10:18 General: Appears in no apparent distress. uncomfortable, well groomed, well developed, kc6 Behavior is cooperative, appropriate for age, restless, Reports feeling ill for 12-24 hours, fatigue for 12-24 hours. Pain: Complains of pain in chest. Neuro: Level of Consciousness is awake, alert, obeys commands, Oriented to person, place, time, situation, Appropriate for age Reports weakness. Cardiovascular: Reports chest pain, Capillary refill < 3 seconds Rhythm is regular. Respiratory: Reports shortness of breath at rest on exertion cough that is dry, air hunger pain with cough pain with respiration Airway is patent Trachea midline Respiratory effort is even, labored, pursed lip, Respiratory pattern is symmetrical, tachypnea Breath sounds with wheezes bilaterally. Onset: The symptoms/episode began/occurred yesterday, the patient has moderate shortness of breath. GI: No signs and/or symptoms were reported involving the gastrointestinal system. : No signs and/or symptoms were reported regarding the genitourinary system. EENT: Reports nasal congestion. Derm: No signs and/or symptoms reported regarding the dermatologic system. Skin is intact, is healthy with good turgor, Skin is clammy, Skin is pale, Skin temperature is warm. Musculoskeletal: No signs and/or symptoms reported regarding the musculoskeletal system. Circulation, motion, and sensation intact. Capillary refill < 3 seconds, Range of motion: intact in all extremities. 11:18 Reassessment: Patient appears in no apparent distress at this time. No changes from kc6 previously documented assessment. Patient and/or family updated on plan of care and expected duration. Pain level reassessed. Patient is alert, oriented x 3, equal unlabored respirations, skin warm/dry/pink. 12:47 Reassessment: Patient appears in no apparent distress at this time. No changes from kc6 previously documented assessment. Patient and/or family updated on plan of care and expected duration. Pain level reassessed. Patient is alert, oriented x 3, equal unlabored respirations, skin warm/dry/pink. Vital Signs: 09:37 BP 144 / 105; Pulse 88; Resp 28; Temp 97.1; Pulse Ox 100% on R/A; Weight 86.18 kg; iw Height 5 ft. 2 in. ; Pain 6/10; 10:17 BP 149 / 87; Pulse 93; Resp 20 S; Pulse Ox 95% on R/A; kc6 12:47 BP 119 / 77; Pulse 95; Resp 19 S; Pulse Ox 100% on R/A; kc6 09:37 Body Mass Index 34.75 (86.18 kg, 157.48 cm) iw 09:37 Pain Scale: Adult iw ED Course: 09:34 Patient arrived in ED. im 09:34 Krysta Xiao PA-C is PHCP. sb4 09:34 Margarito Flores MD is Attending Physician. sb4 09:36 Triage completed. iw 09:48 Radha Walsh, CURT is Primary Nurse. kc6 10:01 Inserted saline lock: 20 gauge in right antecubital area, using aseptic technique. kc6 Blood collected. Flushed with 10 mL NS. 10:17 Patient maintains SpO2 saturation greater than 95% on room air. kc6 10:17 Patient has correct armband on for positive identification. Placed in gown. Bed in low kc6 position. Call light in reach. Side rails up X 1. Pulse ox on. NIBP on. Door closed. Noise minimized. Lights dimmed. Warm blanket given. Pillow given. 10:19 Arm band placed on. kc6 10:53 Chest Pa And Lat (2 Views) XRAY In Process Unspecified. EDMS 11:[address] In Process Unspecified. EDMS 11:44 Troponin HS Sent. ph 11:44 BNP Sent. ph 11:44 Initial lab(s) drawn, by me, sent to lab. ph 12:58 No provider procedures requiring assistance completed. IV discontinued, intact, kc6 bleeding controlled, No redness/swelling at site. Pressure dressing applied. Administered Medications: 09:47 Drug: DuoNeb Nebulize (3:1) (2.5 mg - 0.5 mg) 3 ml Nebulizer once Route: Nebulizer; iw 10:17 Follow up: Response: No adverse reaction; Wheezing unchanged kc6 10:16 Drug: MethylPrednisoLONE IVP 125 mg IVP once Route: IVP; Site: right antecubital; kc6 12:47 Follow up: Response: No adverse reaction kc6 10:16 Drug: NS 0.9% IV 1000 ml IV at 1000 ml once; to be given as a bolus over 60 minutes kc6 Route: IV; Rate: 1000 ml; Site: right antecubital; 12:48 Follow up: Response: No adverse reaction; IV Status: Completed infusion; IV Intake: kc6 1000ml 10:17 Drug: Ketorolac IVP 15 mg IVP once Route: IVP; Site: right antecubital; kc6 12:48 Follow up: Response: No adverse reaction kc6 10:17 Drug: Ativan IVP 0.5 mg IVP once Route: IVP; Site: right antecubital; kc6 12:48 Follow up: Response: No adverse reaction; RASS: Alert and Calm (0) kc6 11:44 Drug: Albuterol Inhalation 2.5 mg Inhalation once Route: Inhalation; ph 11:44 Drug: Magnesium Sulfate IVPB 1 grams IVPB once over 1 hrs Route: IVPB; Infused Over: 1 ph hrs; Site: right antecubital; 12:48 Follow up: Response: No adverse reaction; IV Status: Completed infusion; IV Intake: [id number] Medication: 12:58 VIS not applicable for this client. kc6 Intake: 12:48 IV: 1000ml; Total: 1000ml. kc6 12:48 IV: 50ml; Total: 1050ml. kc6 Outcome: 12:47 Discharge ordered by MD. sb4 12:58 Discharged to home ambulatory, with family, kc6 12:58 Condition: improved 12:58 Discharge instructions given to patient, Instructed on discharge instructions, follow up and referral plans. no drinking with medication, no driving heavy equipment, medication usage, Demonstrated understanding of instructions, follow-up care, medications, Prescriptions given X 4, 12:58 Patient left the ED. kc6 Signatures: Dispatcher [employer] Marii Corral RN RN iw Hall, Patricia, RN RN ph Campbell, Kaitlyn, RN RN kc6 Brown, Sophia, PA-C PASocorro [email or web address] Genoveva Woodward Corrections: (The following items were deleted from the chart) 09:38 09:37 Pulse 88bpm; Resp 28bpm; Pulse Ox 100% RA; Temp 97.1F; 86.18 kg; Height 5 ft. 2 iw in.; BMI: 34.7; Pain 610, Adult; iw
[2024-02-19 13:23] VITALS: TEMP 97.1
[2024-02-19 13:25] VITALS: BP 119/77; O2SAT 100
== END 2024-02-19 12:58 | disposition home or self-care (01) ==
LOC: ER 09:33
DX: J06.9 Acute upper respiratory infection, unspecified (principal); Z11.52 Encounter for screening for COVID-19
CPT/HCPCS: 36415; 71046; 71250; 80048; 83880; 84484; 84703; 85025; 87804; 87807; 87811; 96361; 96365; 96375; 99285; J2919; J3475; J7030; J7613; J7644

== ENCOUNTER 2024-11-29 08:06 | Emergency (ER) | payer SELFPAY ==
[2024-11-29] MEDS ORDERED: ONDANSETRON 4 MG/2 ML VIAL ONE (08:32)
[2024-11-29] MEDS ORDERED: NA CHLORIDE 0.9% 1,000 ML ONE (08:32)
[2024-11-29 08:48] LABS: Absolute Lymphocytes (CBC) 0.6 K/uL (0.7-4.9); Hematocrit 42.6 % (36.0-45.0); Hemoglobin 14.3 g/dL (12.0-15.0); MCH 29.6 pg (27.0-35.0); MCHC 33.5 g/dL (32.0-36.0); MCV 88.6 fL (80-100); MPV 9.3 fL (7.6-11.3); Nucleated RBC Absolute Count 0.0 (0-0); Nucleated Red Blood Cells % 0.0 % (0-0); RBC Red Blood Cell Count 4.81 M/uL (3.86-4.86); White Blood Count 14.10 thou/uL (4.3-10.9)
[2024-11-29 09:05] LABS: ALT/SGPT 26.0 U/L (13-56); AST/SGOT 18.0 U/L (15-37); Albumin 3.6 g/dL (3.4-5.0); Albumin/Globulin Ratio 0.9 (1.1-1.8); Alkaline Phosphatase 69.0 U/L (45-117); Anion Gap 8.9 mEq/L (5.0-15.0); BUN Blood Urea Nitrogen 14.0 mg/dL (7-18); Globulin 3.8 g/dL (2.3-3.5); Glucose Level 95.0 mg/dL (74-106); Lipase 20.0 U/L (13-75); Potassium 3.9 mEq/L (3.5-5.1)
[2024-11-29] MEDS ORDERED: HALOPERIDOL LACT 5 MG/ML INJ ONE (09:10)
[2024-11-29 10:25] LABS: Sqamous Epithelial <5 /HPF (None Seen); Urine Crystals Unidentified Few /HPF (None Seen); Urine Culture Reflex Order NOT NEEDED; Urine Microscopic Reflex YN ORDER UMIC; Urine WBC Clump Rare /HPF (None Seen); Urine Yeast (Budding) Trace /HPF (None Seen)
--- NOTE | 2024-11-29 10:29 | EDPHYS ---
Physician Documentation [facility] Name: Erika Marr Age: 34 yrs Sex: Female : 1990 Arrival Date: 11/29/2024 Time: 08:06 Bed 8 Private MD: ED Physician Osorio Nunes HPI: 11/29 08:33 This 34 yrs old Female presents to ER via Wheelchair with complaints of dr5 Nausea/Vomiting, Abdominal Pain. 08:33 The patient presents to the emergency department with nausea, vomiting. Onset: The dr5 symptoms/episode began/occurred this morning. Patient is a 34-year-old female with history of gastritis coming in with nausea and vomiting that started at 1 AM this morning. Patient reports that she smokes marijuana nightly daily. Patient denies chest pain, shortness of breath, diarrhea, constipation, vaginal bleeding or discharge, dysuria, or fever.. Historical: - Allergies: 08:33 No Known Allergies; aa5 - PMHx: 08:33 None; aa5 - PSHx: 08:33 section; Cholecystectomy; bp - Immunization history:: Adult Immunizations up to date. - Infectious Disease History:: Denies. - Social history:: Smoking status: unknown. ROS: 08:33 Constitutional: as per hpi dr5 Exam: 08:33 Constitutional: This is a well developed, well nourished patient who is awake, alert, dr5 and in no acute distress. Head/Face: Normocephalic, atraumatic. Eyes: Pupils equal round and reactive to light, extra-ocular motions intact. Lids and lashes normal. Conjunctiva and sclera are non-icteric and not injected. Cornea within normal limits. Periorbital areas with no swelling, redness, or edema. Neck: Trachea midline, no thyromegaly or masses palpated, and no cervical lymphadenopathy. Supple, full range of motion without nuchal rigidity, or vertebral point tenderness. No Meningismus. Chest/axilla: Normal chest wall appearance and motion. Nontender with no deformity. No lesions are appreciated. Cardiovascular: Regular rate and rhythm with a normal S1 and S2. Normal PMI, no JVD. No pulse deficits. Respiratory: Lungs have equal breath sounds bilaterally, clear to auscultation. No rales, rhonchi or wheezes noted. No increased work of breathing, no retractions or nasal flaring. Abdomen/GI: Soft, non-tender, non-distended Back: No spinal tenderness. No costovertebral tenderness. Full range of motion. Skin: Warm, dry with normal turgor. Normal color with no rashes, no lesions, and no evidence of cellulitis. MS/ Extremity: Pulses equal, no cyanosis. Neurovascular intact. Full, normal range of motion. Neuro: Awake and alert, GCS 15, oriented to person, place, time, and situation. Cranial nerves II-XII grossly intact. Motor strength 5/5 in all extremities. Sensory grossly intact. Cerebellar exam normal. Normal gait. Vital Signs: 08:32 BP 126 / 76; Pulse 71; Resp 16; Temp 97.4; Pulse Ox 100% ; bp 09:45 BP 128 / 98; Pulse 88; Resp 16 S; Temp 97.8(TE); Pulse Ox 98% on R/A; aa5 MDM: 08:14 Medical Screening Exam initiated dr5 10:28 Differential diagnosis: Nonspecific abd pain, Cannabinoid hyperemesis syndrome, anemia, dr5 dehydration. Data reviewed: vital signs, nurses notes, lab test result(s), CBC, white blood cell count, hemoglobin, hematocrit, platelets, electrolytes, sodium, potassium, chloride, serum bicarbonate, BUN, creatinine, serum glucose, urinalysis, UPT: negative EKG. Consideration of Admission/Observation Escalation of care including admission/observation considered. Escalation considered patient found to have a kidney failure. I considered the following discharge prescriptions or medication management in the emergency department I discussed and recommended Over The Counter medications, Medications were administered in the Emergency Department. See MAR. Care significantly affected by the following Social Determinants of Health: Poor access to healthcare and/or lack of insurance, Poor access to transportation, Misuse of alcohol and/or drugs, Problems related to employment. Counseling: I had a detailed discussion with the patient and/or guardian regarding the historical points, exam findings, and any diagnostic results supporting the discharge/admit diagnosis, the presence of at least one elevated blood pressure reading (>120/80) during this emergency department visit, lab results, the need for outpatient follow up, for definitive care, a family practitioner, to return to the emergency department if symptoms worsen or persist or if there are any questions or concerns that arise at home. Counseling: I had a detailed discussion with the patient and/or guardian regarding smoking cessation. Medication response: Haldol, Zofran, normal saline. Response to treatment: the patient's symptoms have resolved after treatment, the patient's condition has returned to base line, the patient is now symptom free. Special discussion: I discussed with the patient/guardian in detail that at this point there is no indication for admission to the hospital. It is understood, however, that if the symptoms persist or worsen the patient needs to return immediately for re-evaluation. Based on the history and exam findings, there is no indication for further emergent testing or inpatient evaluation. I discussed with the patient/guardian the need to see the primary care provider for further evaluation of the symptoms. ED course: Recommended patient stop smoking marijuana. Patient was rehydrated and given Haldol which has alleviated all symptoms. Patient reports he is much better. All questions answered. Strict ER precautions given.. 11/29 08:31 Order name: CBC with Diff; Complete Time: 09:00 dr5 11/29 08:31 Order name: CMP; Complete Time: : dr5 11/29 08:31 Order name: Lipase; Complete Time: : dr5 11/29 08:31 Order name: Test, Urine; Complete Time: 10: dr5 11/29 08:31 Order name: UA Rfx [place]acho Cult if indicated; Complete Time: 10: dr5 11/29 08:31 Order name: IV Saline Lock; Complete Time: 08:44 dr5 11/29 08:31 Order name: Labs collected and sent; Complete Time: : dr5 11/29 08:31 Order name: EKG - Nurse/Tech; Complete Time: 08:54 dr5 EC:52 Rate is 58 beats/min. Rhythm is regular. QRS [place] is Normal. UT interval is normal at dr5 142 msec. QRS interval is normal at 86 msec. QT interval is normal at 422 msec. Clinical impression: Normal ECG and No evidence of ischemia. Administered Medications: :44 Drug: NS 0.9% IV 1000 ml IV at 1 bolus Per protocol; to be given as a bolus over 60 aa5 minutes Route: IV; Rate: 1 bolus; Site: right antecubital; :44 Follow up: IV Status: Completed infusion; IV Intake: 1000ml aa5 08:45 Drug: Ondansetron IVP 4 mg IVP once; over 2 minutes Route: IVP; Site: right antecubital;aa5 08:50 Follow up: Response: No adverse reaction aa5 09:16 Drug: Haloperidol IVP 2.5 mg/50 mL 2.5 mg IVP once; Place patient on a compliance monitor aa5 Route: IVP; Site: right antecubital; 09:26 Follow up: Response: No adverse reaction aa5 Disposition: 18:38 Co-signature as Attending Physician, Osorio Nunes MD I reviewed the patient's care rn provided by the Advanced Practice Provider and agree with the diagnosis and treatment plan. Disposition Summary: 11/29/24 10:28 Discharge Ordered Notes: Location: Home dr5 Condition: Stable dr5 Diagnosis - Nausea with vomiting, unspecified dr5 Followup: dr5 - With: Emergency Department - When: As needed - Reason: Worsening of condition Followup: dr5 - With: Private Physician - When: 1 - 2 days - Reason: Recheck today's complaints, Continuance of care, Re-evaluation by your physician Discharge Instructions: - Discharge Summary Sheet dr5 - Nausea and Vomiting, Adult dr5 Forms: - Medication Reconciliation Form dr5 - Patient Portal Instructions dr5 - Leadership Thank You Letter dr5 Prescriptions: - Zofran 4 mg Oral Tablet - take 1 tablet ORAL route every 12 hours As needed; 20 tablet; Refills: 0, dr5 Product Selection Permitted Signatures: Dispatcher [employer] EDOsorio Hernandez MD MD rn Calderon, Audri, RN RN aa5 Rico Mccann, RN RN Aquiles Carter, LIVING SUPERVISOR-C LIVING SUPERVISOR-Cdr5 Corrections: (The following items were deleted from the chart) 08:31 08:31 CBC+H.LAB.BRZ ordered. EDMS EDMS 08:31 08:31 COMPREHENSIVE METABOLIC PANEL+C.LAB.BRZ ordered. EDMS EDMS 08:31 08:31 LIPASE+C.LAB.BRZ ordered. EDMS EDMS 08:31 08:31 Test, Urine+UC.LAB.BRZ ordered. EDMS EDMS 08:31 08:31 UA Rfx Chacho Cult if indicated+U.LAB.BRZ ordered. EDMS EDMS
--- NOTE | 2024-11-29 10:29 | ER ---
Nurse's Notes [facility] Name: Erika Marr Age: 34 yrs Sex: Female : 1990 Arrival Date: 11/29/2024 Time: 08:06 Bed 8 Private MD: Diagnosis: Nausea with vomiting, unspecified Presentation: 11/29 08:32 Chief complaint: Patient states: N/V POST 0100. Coronavirus screen: At this time, the bp client does not indicate any symptoms associated with coronavirus-19. Ebola Screen: No symptoms or risks identified at this time. Initial Sepsis Screen: Does the patient meet any 2 criteria? No. Patient's initial sepsis screen is negative. Does the patient have a suspected source of infection? No. Patient's initial sepsis screen is negative. Risk Assessment: Do you want to hurt yourself or someone else? Patient reports no desire to harm self or others. Onset of symptoms was November 29, 2024 at 01:00. 08:32 Method Of Arrival: Wheelchair bp 08:32 Acuity: VANITA 3 bp Triage Assessment: 08:33 General: Appears in no apparent distress. uncomfortable, Behavior is cooperative, bp appropriate for age, anxious. Pain: Complains of pain in abdomen. EENT: No deficits noted. Neuro: No deficits noted. Cardiovascular: No deficits noted. Respiratory: No deficits noted. GI: Reports upper abdominal pain, nausea, vomiting. : No signs and/or symptoms were reported regarding the genitourinary system. Derm: No deficits noted. Musculoskeletal: No deficits noted. Historical: - Allergies: 08:33 No Known Allergies; aa5 - PMHx: 08:33 None; aa5 - PSHx: 08:33 section; Cholecystectomy; bp - Immunization history:: Adult Immunizations up to date. - Infectious Disease History:: Denies. - Social history:: Smoking status: unknown. Screenin:35 [facility] ED Fall Risk Assessment (Adult) History of falling in the last 3 months, aa5 including since admission No falls in past 3 months (0 pts) Confusion or Disorientation No (0 pts) Intoxicated or Sedated No (0 pts) Impaired Gait No (0 pts) Mobility Assist Device Used No (0 pt) Altered Elimination No (0 pt) Score/Fall Risk Level 0 - 2 = Low Risk Oriented to surroundings, Maintained a safe environment, Educated pt \T\ family on fall prevention, incl call for assistance when getting out of bed, Assessed \T\ reinforced patient's understanding of fall precautions. Abuse screen: Denies threats or abuse. Nutritional screening: No deficits noted. Tuberculosis screening: No symptoms or risk factors identified. Assessment: 08:35 General: Appears uncomfortable, Behavior is calm, cooperative. Pain: Complains of pain aa5 in right upper quadrant, left upper quadrant, right lower quadrant and left lower quadrant Pain does not radiate. Pain currently is 8 out of 10 on a pain scale. Quality of pain is described as crampy, Pain began around midnight today Is intermittent. Neuro: Level of Consciousness is awake, alert, obeys commands, Oriented to person, place, time, situation. Cardiovascular: Heart tones S1 S2 present Rhythm is regular. Respiratory: Airway is patent Respiratory effort is even, unlabored, Respiratory pattern is regular, symmetrical. GI: Abdomen is round non-distended, Bowel sounds present X 4 quads. Abd is soft and non tender X 4 quads. Reports diarrhea, nausea, vomiting. : No signs and/or symptoms were reported regarding the genitourinary system. EENT: No signs and/or symptoms were reported regarding the EENT system. Derm: Skin is pink, warm \T\ dry. Musculoskeletal: Range of motion: intact in all extremities. 09:45 Reassessment: Patient is alert, oriented x 3, equal unlabored respirations, skin aa5 warm/dry/pink. Patient states feeling better. Patient states symptoms have improved. Pt reminded of need for urine specimen, pt reports she doesn't have to void at this time. . 10:08 Reassessment: Patient is alert, oriented x 3, equal unlabored respirations, skin aa5 warm/dry/pink. Patient states feeling better. Patient states symptoms have improved. Pt ambulatory with steady gait to restroom. . 10:13 Reassessment: Patient is alert, oriented x 3, equal unlabored respirations, skin aa5 warm/dry/pink. Urine collected and sent to lab . Vital Signs: 08:32 BP 126 / 76; Pulse 71; Resp 16; Temp 97.4; Pulse Ox 100% ; bp 09:45 BP 128 / 98; Pulse 88; Resp 16 S; Temp 97.8(TE); Pulse Ox 98% on R/A; aa5 ED Course: 08:09 Patient arrived in ED. im 08:14 Aquiles Quintero FNP-C is [facility]. dr5 08:14 Osorio Nunes MD is Attending Physician. dr5 08:33 Triage completed. bp 08:33 Emely Cantrell, RN is Primary Nurse. aa5 08:33 Arm band placed on. bp 08:33 Pulse ox on. NIBP on. aa5 08:33 Patient has correct armband on for positive identification. Bed in low position. Call aa5 light in reach. Side rails up X2. 08:40 Inserted saline lock: 20 gauge in right antecubital area, using aseptic technique. aa5 Blood collected. Flushed with 10 mL NS. 08:54 EKG done, by ED staff, reviewed by Aquiles STEIN. mb9 09:13 monitoring and evaluation advisor on. aa5 10:18 No provider procedures requiring assistance completed. aa5 10:40 IV discontinued, intact, bleeding controlled, No redness/swelling at site. Pressure aa5 dressing applied. Administered Medications: 08:44 Drug: NS 0.9% IV 1000 ml IV at 1 bolus Per protocol; to be given as a bolus over 60 aa5 minutes Route: IV; Rate: 1 bolus; Site: right antecubital; 09:44 Follow up: IV Status: Completed infusion; IV Intake: 1000ml aa5 08:45 Drug: Ondansetron IVP 4 mg IVP once; over 2 minutes Route: IVP; Site: right antecubital;aa5 08:50 Follow up: Response: No adverse reaction aa5 09:16 Drug: Haloperidol IVP 2.5 mg/50 mL 2.5 mg IVP once; Place patient on a monitoring and evaluation advisor aa5 Route: IVP; Site: right antecubital; 09:26 Follow up: Response: No adverse reaction aa5 Medication: 10:15 VIS not applicable for this client. aa5 Intake: 09:44 IV: 1000ml; Total: 1000ml. aa5 Outcome: 10:28 Discharge ordered by . dr5 10:45 Discharged to home ambulatory, with family, aa5 10:45 Condition: improved 10:45 Discharge instructions given to patient, Instructed on discharge instructions, follow up and referral plans. medication usage, Demonstrated understanding of instructions, follow-up care, medications, Prescriptions given X 1, 10:47 Patient left the ED. aa5 Signatures: Emely Cantrell RN RN aa5 Rico Mccann RN RN Leidy Rubin RN RN mb9 Genoveva Woodward Dustin, PILATES INSTRUCTOR-C PILATES INSTRUCTOR-Cdr5 Corrections: (The following items were deleted from the chart) 09:17 08:50 Inserted saline lock: 20 gauge in right antecubital area, using aseptic aa5 technique. Blood collected. Flushed with 10 mL NS aa5
[2024-11-29 10:52] VITALS: BP 126/76; TEMP 97.4; O2SAT 100
== END 2024-11-29 10:47 | disposition home or self-care (01) ==
LOC: ER 08:06
DX: R11.2 Nausea with vomiting, unspecified (principal)
CPT/HCPCS: 36415; 80053; 81001; 81025; 83690; 85025; 93005; 96361; 96374; 96375; 99285; J1630; J2405; J7030